=== PATIENT | male | born 1935 | race Caucasian/White ===

== ENCOUNTER 2022-03-13 10:51 | Inpatient (IN) ==
[2022-03-13] MEDS ORDERED: IOPAMIDOL 100 ML BOTTLE IV ONE (10:52)
[2022-03-13] MEDS ORDERED: IPRATROPIUM/ALBUTEROL SULFATE 1 PUFF INHALER INH ONE (11:15)
[2022-03-13] MEDS ORDERED: IPRATROPIUM/ALBUTEROL 3 ML AMPUL.NEB NEB ONE (11:18)
[2022-03-13 11:30] LABS: POC Calcium, Ionized 1.26 (1.16-1.32); POC Creatinine 1.2 (0.6-1.2); POC Potassium 3.9 (3.3-5.1)
[2022-03-13 12:21] LABS: Basophils # (Auto) 0.02 K/mcL (0.00-0.30); Basophils % (Auto) 0.3 % (0.0-2.0); Eosinophils # (Auto) 0.14 K/mcL (0.00-0.70); Hematocrit 41.6 % (40.1-51.0); Lymphocytes # (Auto) 0.67 K/mcL (1.50-4.80); Lymphocytes % (Auto) 9.6 % (15.5-49.0); Mean Cell Volume 92.7 fL (80.0-100.0); Mean Corpuscular HGB Conc 33.7 g/dL (31.0-36.0); Mean Platelet Volume 9.5 fL (8.8-12.5); Monocytes # (Auto) 0.65 K/mcL (0.10-0.90); Monocytes % (Auto) 9.3 % (1.0-12.0); Neutrophils % (Auto) 78.4 % (38.0-78.0); Platelet Count 204 K/mcL (140-440); RBC 4.49 M/mcL (4.63-6.08); Red Cell Distribution Width 13.8 % (11.5-14.5)
[2022-03-13 12:43] LABS: INR 1.1 (0.9-1.1); Prothrombin Time 14.7 sec (11.9-14.5)
--- NOTE | 2022-03-13 12:48 | XRay Report ---
INDICATION: dyspnea TECHNIQUE: AP portable upright chest x-ray COMPARISON: Previous chest x-rays dated 03/08/2022, 01/09/2022, 11/01/2021 FINDINGS: Elevated right hemidiaphragm is unchanged. There is right apical pleural thickening. There is retraction of the trachea toward the right. Findings suggest previous right partial pneumonectomy. Clinical correlation is necessary. No focal left lung infiltrate or mass Heart size and vascularity are normal. No pulmonary edema or pulmonary congestion IMPRESSION: 1. Findings consistent with right partial pneumonectomy 2. No acute abnormality. No interval change Interpreted and Authenticated by: Chidi Villa 03/13/22
[2022-03-13 12:57] LABS: ALT/SGPT 35 U/L (<40); AST/SGOT 53 U/L (<40); Albumin 3.5 gm/dL (3.2-5.2); Albumin/Globulin Ratio 1.1 (1.0-2.3); Alkaline Phosphatase 100 U/L (39-117); Bilirubin,Total 0.6 mg/dL (0.1-1.0); Blood Urea Nitrogen 15 mg/dL (8-23); Calcium 10.8 mg/dL (8.6-10.4); Carbon Dioxide 28 mmol/L (22-30); Chloride 94 mmol/L (96-108); Globulin 3.3 gm/dL (2.2-3.7); Glomerular Filtration Rate 61; Glucose 125 mg/dL (70-105)
[2022-03-13] MEDS ORDERED: DEXAMETHASONE 4 MG/ML VIAL NEB ONE (12:59)
[2022-03-13] MEDS ORDERED: AZITHROMYCIN 500 MG in DEXTROSE 5% IN WATER 250 ML IV ONE (12:59)
--- NOTE | 2022-03-13 13:01 | Emergency Department Note ---
HPI General Chief complaint: Shortness of Breath/Dyspnea Stated complaint: SOB Time Seen by Provider: 03/13/22 11:07 Source: patient and family Mode of arrival: wheelchair Limitations: no limitations History of Present Illness HPI Narrative: Narrative: This 86-year-old male presents complaining of an increasing shortness of breath over the last 7 days. The patient does not give much history he says he has had a cough that is productive he is not sure what color sputum he denies any fever sweats or chills and denies any shortness of breath. He also denies any chest pain or palpitations. Patient has a history of COPD as well as coronary artery disease he also has a right upper lobe cancer hypertension hypo thyroidism Related Data Home Medications Medication Instructions Recorded Confirmed Lacto.acidophilus-Bif.animalis 1 cap PO QDAY 08/01/17 03/08/22 [Probiotic] aspirin 81 mg tablet,delayed 81 mg PO QDAY 08/01/17 03/08/22 release cholecalciferol (vitamin D3) 25 1,000 unit PO BID 08/01/17 03/08/22 mcg (1,000 unit) capsule vitamin B complex 1 cap PO QAM 08/01/17 03/08/22 naproxen sodium 220 mg tablet 220 mg PO QDAY PRN Pain 09/21/21 03/08/22 (Aleve) diphenhydramine 25 2 tab PO QPM 10/06/21 03/08/22 mg-acetaminophen 500 mg tablet (Tylenol PM Extra Strength) Previous Rx's Medication Instructions Recorded fluticasone propionate 50 See Rx Instructions .Route 09/16/20 mcg/actuation nasal .COMPLEX allergies #16 grams spray,suspension inguinal hernia truss ##1 11/14/20 metoprolol succinate 50 mg 50 mg PO QDAY #90 tabs 11/14/20 tablet,extended release 24 hr losartan 50 mg tablet See Rx Instructions .Route 03/20/21 .COMPLEX #180 tabs gabapentin 100 mg capsule See Rx Instructions .Route 04/07/21 .COMPLEX #360 caps furosemide 20 mg tablet See Rx Instructions .Route 07/06/21 .COMPLEX #90 tabs potassium chloride 10 mEq See Rx Instructions .Route 07/06/21 capsule,extended release .COMPLEX #90 caps albuterol sulfate 90 mcg/actuation 2 puff inhalation Q6H PRN 07/22/21 aerosol inhaler shortness of breath or wheezing #25.5 grams fluticasone 250 mcg-salmeterol 50 1 inh inhalation BID COPD #60 ea 07/22/21 mcg/dose blistr powdr for inhalation (Wixela Inhub) Stationary concentrator and nasal #1 ea 07/23/21 cannula tubing lorazepam 0.5 mg tablet 0.5 mg PO Q8H PRN anxiety #90 tabs 09/15/21 acetaminophen 650 mg 650 mg PO Q8H PRN pain #90 tabs 10/27/21 tablet,extended release (Tylenol 8 Hour) omeprazole 20 mg capsule,delayed See Rx Instructions .Route 11/13/21 release .COMPLEX #90 caps amlodipine 5 mg tablet See Rx Instructions .Route 01/13/22 .COMPLEX #90 tabs tamsulosin 0.4 mg capsule 0.4 mg PO QHS #90 caps 01/13/22 doxycycline monohydrate 100 mg 100 mg PO BID 7 days #14 caps 03/08/22 capsule ipratropium 20 mcg-albuterol 100 1 puff inhalation Q6H #4 grams 03/08/22 mcg/actuation mist for inhalation (Combivent Respimat) Allergies Allergy/AdvReac Type Severity Reaction Status Date / Time adhesive tape AdvReac Mild skin Verified 03/13/22 10:54 irritation/burning Tizanidine [From Zanaflex] AdvReac Mild Hallucinati Verified 03/13/22 10:54 ng Review of Systems ROS ROS Narrative: Narrative: All systems ED: reviewed and negative except as stated. 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) Personal history of other malignant neoplasm of skin (Chronic) Edema, unspecified (Chronic) Essential (primary) hypertension (Chronic) Illness, unspecified (Chronic) Arthralgia of ankle (Chronic) Hyperlipidemia (Chronic) Allergic rhinitis (Chronic) Coronary arteriosclerosis (Chronic) Hip pain (Chronic) Chest pain (Chronic) Shortness of breath (Chronic) Heart palpitations (Chronic) Heart attack (Chronic) Indigestion (Chronic) Heartburn (Chronic) Stomach ulcer (Chronic) Urinary incontinence (Chronic) Arthritis (Chronic) Gout (Chronic) Diabetes (Chronic) Multiple allergies (Chronic) Hay fever (Chronic) Cancer (Chronic) Melanoma (Chronic) History of myocardial infarction (Chronic) Dyspnea on exertion (Chronic) Nocturia (Chronic) Other jail (current) drug therapy (Chronic) COPD (chronic obstructive pulmonary disease) (Chronic) GERD (gastroesophageal reflux disease) (Chronic) Squamous cell carcinoma (Chronic) Hypothyroidism (Chronic) Sinusitis (Chronic) Asthma (Chronic) Hypertension (Chronic) Cough (Chronic) Hypoxia (Chronic) Dyspnea (Chronic) Generalized anxiety disorder (Chronic) Nausea (Chronic) Stress (Chronic) Malignant neoplasm of upper lobe of right lung (Chronic) Lumbar back pain (Chronic) Pain in unspecified ankle and joints of unspecified foot (Chronic) Personal history of malignant neoplasm of skin (Chronic) Encounter for long-term (current) use of medications (Chronic) Maxillary sinusitis (Chronic) Productive cough (Acute) Fever (Acute) COPD exacerbation (Acute) Atherosclerotic heart disease of [place] coronary artery without angina pectoris (Chronic) Lipomatosis, not elsewhere classified (Chronic) Vitamin D deficiency (Chronic) Osteoarthritis (Chronic) Inguinal hernia bilateral, non-recurrent (Acute) Prediabetes (Acute) Allergic rhinitis (Acute) Ascending aorta enlargement (Acute) Hernia (Acute) Shoulder pain (Acute) Hematoma (Acute) Hip pain (Acute) Nocturnal hypoxia (Chronic) Bronchitis (Acute) Bronchitis (Acute) Dyspnea (Acute) Left inguinal hernia (Acute) Right inguinal hernia (Acute) Dehydration (Acute) Heart palpitations (Acute) Calculus of left ureter (Acute) Hydronephrosis, left (Acute) Acute urinary retention (Acute) Acute urinary retention (Acute) BPH loc w urin obs/LUTS (Chronic) Retention of urine (Acute) Urinary incontinence (Acute) Medical History Allergic rhinitis Arthralgia of ankle or foot Arthritis Asthma Atherosclerotic heart disease of [place] coronary artery without angina pectoris Cancer 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 Chest pain COPD (chronic obstructive pulmonary disease) Coronary arteriosclerosis Cough Diabetes Dyspnea Dyspnea on exertion Edema, unspecified Encounter for long-term (current) use of medications Essential (primary) hypertension Fibromyalgia Per pt Generalized anxiety disorder GERD (gastroesophageal reflux disease) Gout Hay fever Heart attack Heart palpitations Heartburn Hip pain History of myocardial infarction Hyperlipidemia Hypertension Hypothyroidism Hypoxia Illness, unspecified Indigestion Lipomatosis, not elsewhere classified Lumbar back pain Malignant neoplasm of upper lobe of right lung right upper lobe lobectomy 01/28/2017; follows with Dr. Morales every 6 months Mass of right lung Maxillary sinusitis Melanoma Multiple allergies Nausea Nocturia Nocturnal hypoxia Osteoarthritis Other jail (current) drug therapy Pain in unspecified ankle and joints of unspecified foot Personal history of malignant neoplasm of skin Personal history of other malignant neoplasm of skin Pneumonia Per pt Pulmonary hypertension Shortness of breath Sinusitis Squamous cell carcinoma Stomach ulcer Stress Urinary incontinence Vitamin D deficiency Surgical History History of bilateral inguinal hernia repair 10/27/2021-robotic assisted bilateral inguinal hernia repair History of cholecystectomy Mid- History of colonoscopy (~1986) History of heart artery stent (~1995) X2 History of skin surgery (~2004) Melanoma History of surgery Lung volume reduction History of thoracic surgery (01/27/17) Family History Mother , age 80 Arthritis Colon cancer Glaucoma , Onset Age: 84 Diabetes mellitus Father Cancer , Onset Age: 52 Lung cancer Arthritis Brother Throat cancer , Onset Age: 62 Social History Smoking Status: Former smoker Alcohol Intake Frequency: does not drink Substance Use: does not use Exam Narrative Narrative: Narrative: General: No acute distress alert and oriented x3 answers quite questions cogently but is very reticent to give any information. Person just does not seem like much of a talker. Skin well perfused and hydrated without exanthem. Lungs: Decreased air movement with expiratory wheezes heard equally b ilaterally no rales. Occasional rhonchi. Cardiovascular: Regular rate and rhythm without murmurs clicks rubs or gallops. Periphery: No peripheral edema. General Limitations: no limitations Course Vital Signs Vital signs: Vital Signs Temperature 97.8 F 03/13/22 10:52 Pulse Rate 99 H 03/13/22 10:52 Respiratory Rate 21 03/13/22 10:52 Blood Pressure 160/95 03/13/22 10:52 Pulse Oximetry (%) 95 03/13/22 10:52 Oxygen Delivery Method 03/13/22 10:52 Temperature 97.8 F 03/13/22 10:52 Pulse Rate 51 L 03/13/22 15:31 Respiratory Rate 23 H 03/13/22 15:31 Blood Pressure 108/75 03/13/22 15:30 Pulse Oximetry (%) 87 L 03/13/22 15:31 Oxygen Delivery Method 03/13/22 10:52 [facility] MDM Narrative Medical decision making narrative: Narrative: The patient's initial pulse ox was 95% on room air and although he was breathing somewhat deeply he was not struggling or working to breathe. He was given a combo nebulizer treatment and stated that he felt better. CBC was negative for elevated white count, however, he did have however an elevated D- dimer of 3.2 and BNP was elevated at 1780. This is markedly higher than his last BNP in November of 400. His troponin was negative at 0.04. Patient developed tachycardia to 150 after the treatment and appeared to be in atrial fibrilation. He was given diltiazem 20 IV, and he slowed down to a rate of approximately 90 and is in sinus rhythm now, he will be placed on a diltiazem drip and because of the elevated D-dimer, a Heparin bolus and drip was started CTA will be checked. Sepsis Sepsis Identified: No Lab Data Result diagrams: 03/13/22 11:20 03/13/22 11:20 Labs: Lab Results 03/13/22 03/13/22 03/13/22 Range/Units 11:16 11:17 11:20 WBC 7.0 (4.5-11.0) K/mcL RBC 4.49 L (4.63-6.08) M/mcL Hgb 14.0 (13.7-17.5) g/dL Hct 41.6 (40.1-51.0) % POC Hct 43.0 (41-55) MCV 92.7 (80.0-100.0) fL MCH 31.2 (26.0-34.0) pg MCHC 33.7 (31.0-36.0) g/dL RDW 13.8 (11.5-14.5) % Plt Count 204 (140-440) K/mcL MPV 9.5 (8.8-12.5) fL Immature Gran % (Auto) 0.4 (0.0-0.5) % Neut % (Auto) 78.4 H (38.0-78.0) % Lymph % (Auto) 9.6 L (15.5-49.0) % [place] % (Auto) 9.3 (1.0-12.0) % Eos % (Auto) 2.0 (0.0-7.0) % Baso % (Auto) 0.3 (0.0-2.0) % Lymph # (Auto) 0.67 L (1.50-4.80) K/mcL [place] # (Auto) 0.65 (0.10-0.90) K/mcL Eos # (Auto) 0.14 (0.00-0.70) K/mcL Baso # (Auto) 0.02 (0.00-0.30) K/mcL Immature Gran # 0.03 (0.00-0.05) K/mcl Absolute Neutrophils 5.47 (1.80-8.00) K/mcL PT (11.9-14.5) sec INR (0.9-1.1) D-Dimer (0.27-0.50) ug/mL POC Sodium 135 (133-145) Sodium (133-145) mmol/L POC Potassium 3.9 (3.3-5.1) Potassium (3.3-5.1) mmol/L POC Chloride 95 L (96-108) Chloride (96-108) mmol/L Carbon Dioxide (22-30) mmol/L POC Total CO2 33.0 H (22-30) Anion Gap (8.0-16.0) POC BUN 18 (6-20) BUN (8-23) mg/dL Creatinine (0.7-1.2) mg/dL POC Creatinine 1.2 (0.6-1.2) GFR Calculation Glucose (70-105) mg/dL POC Glucose 127 H (70-105) Calcium (8.6-10.4) mg/dL POC WB Ioniz Calcium 1.26 (1.16-1.32) Total Bilirubin (0.1-1.0) mg/dL AST (<40) U/L ALT (<40) U/L Alkaline Phosphatase (39-117) U/L NT-Pro-B Natriuret Pep (<450.0) pg/mL Total Protein (5.9-8.4) gm/dL Albumin (3.2-5.2) gm/dL Globulin (2.2-3.7) gm/dL Albumin/Globulin Ratio (1.0-2.3) POC Troponin I 0.04 (0.00-0.08) 03/13/22 03/13/22 Range/Units 11:20 11:20 WBC (4.5-11.0) K/mcL RBC (4.63-6.08) M/mcL Hgb (13.7-17.5) g/dL Hct (40.1-51.0) % POC Hct (41-55) MCV (80.0-100.0) fL MCH (26.0-34.0) pg MCHC (31.0-36.0) g/dL RDW (11.5-14.5) % Plt Count (140-440) K/mcL MPV (8.8-12.5) fL Immature Gran % (Auto) (0.0-0.5) % Neut % (Auto) (38.0-78.0) % Lymph % (Auto) (15.5-49.0) % [place] % (Auto) (1.0-12.0) % Eos % (Auto) (0.0-7.0) % Baso % (Auto) (0.0-2.0) % Lymph # (Auto) (1.50-4.80) K/mcL [place] # (Auto) (0.10-0.90) K/mcL Eos # (Auto) (0.00-0.70) K/mcL Baso # (Auto) (0.00-0.30) K/mcL Immature Gran # (0.00-0.05) K/mcl Absolute Neutrophils (1.80-8.00) K/mcL PT 14.7 H (11.9-14.5) sec INR 1.1 (0.9-1.1) D-Dimer 3.20 H (0.27-0.50) ug/mL POC Sodium (133-145) Sodium 132 L (133-145) mmol/L POC Potassium (3.3-5.1) Potassium 4.0 (3.3-5.1) mmol/L POC Chloride (96-108) Chloride 94 L (96-108) mmol/L Carbon Dioxide 28 (22-30) mmol/L POC Total CO2 (22-30) Anion Gap 10.0 (8.0-16.0) POC BUN (6-20) BUN 15 (8-23) mg/dL Creatinine 1.1 (0.7-1.2) mg/dL POC Creatinine (0.6-1.2) GFR Calculation 61 Glucose 125 H (70-105) mg/dL POC Glucose (70-105) Calcium 10.8 H (8.6-10.4) mg/dL POC WB Ioniz Calcium (1.16-1.32) Total Bilirubin 0.6 (0.1-1.0) mg/dL AST 53 H (<40) U/L ALT 35 (<40) U/L Alkaline Phosphatase 100 (39-117) U/L NT-Pro-B Natriuret Pep 1780.0 H (<450.0) pg/mL Total Protein 6.8 (5.9-8.4) gm/dL Albumin 3.5 (3.2-5.2) gm/dL Globulin 3.3 (2.2-3.7) gm/dL Albumin/Globulin Ratio 1.1 (1.0-2.3) POC Troponin I (0.00-0.08) ED POC Tests ED POC Tests: [facility]I - Influenza A Negative CHI - Influenza B Negative CHI - SARS Antigen Negative Discharge Plan Patient/Caregiver Discharge Instructions Follow up with: Glenna Harris PA-C [Primary Care Provider] - Prescriptions: No Action potassium chloride 10 mEq capsule, extended release See Rx Instructions .ROUTE .COMPLEX Qty: 90 3RF Dose Instruction: TAKE 1 CAPSULE BY MOUTH EVERY DAY Rx Instructions: TAKE 1 CAPSULE BY MOUTH EVERY DAY furosemide 20 mg tablet See Rx Instructions .ROUTE .COMPLEX Qty: 90 3RF Dose Instruction: TAKE 1 TABLET BY MOUTH EVERY MORNING FOR HYPERTENSION Rx Instructions: TAKE 1 TABLET BY MOUTH EVERY MORNING FOR HYPERTENSION fluticasone propion-salmeterol [Wixela Inhub] 250-50 mcg/dose blister with device 1 inh inhalation BID Qty: 60 12RF Rx Instructions: Inhale 1 dose twice a day rinse and clear mouth after . albuterol sulfate 90 mcg/actuation HFA aerosol inhaler 2 puff inhalation Q6H PRN (Reason: shortness of breath or wheezing) Qty: 25.5 3RF (DME) Stationary concentrator and nasal cannula tubing See Rx Instructions .Route .MEDSUPPLY Qty: 1 0RF Rx Instructions: Wear 2LPM while sleeping; at night and or naps. lorazepam 0.5 mg tablet 0.5 mg PO Q8H PRN (Reason: anxiety ) Qty: 90 2RF omeprazole 20 mg capsule,delayed release(DR/EC) See Rx Instructions .ROUTE .COMPLEX Qty: 90 2RF Dose Instruction: TAKE 1 CAPSULE BY MOUTH EVERY DAY Rx Instructions: TAKE 1 CAPSULE BY MOUTH EVERY DAY amlodipine 5 mg tablet See Rx Instructions .ROUTE .COMPLEX Qty: 90 4RF Dose Instruction: TAKE 1 TABLET(5 MG) BY MOUTH EVERY NIGHT AT BEDTIME FOR HYPERTENSION Rx Instructions: TAKE 1 TABLET(5 MG) BY MOUTH EVERY NIGHT AT BEDTIME FOR HYPERTENSION aspirin 81 mg tablet,delayed release (DR/EC) 81 mg PO QDAY cholecalciferol (vitamin D3) 1,000 unit capsule 1,000 unit PO BID Lacto.acidophilus-Bif.animalis 1 cap PO QDAY vitamin B complex 1 cap PO QAM naproxen sodium [Aleve] 220 mg tablet 220 mg PO QDAY PRN (Reason: Pain) doxycycline monohydrate 100 mg capsule 100 mg PO BID 7 Days Qty: 14 0RF Rx Instructions: Take with food. Combivent Respimat 20-100 mcg/actuation mist 1 puff inhalation Q6H Qty: 4 0RF fluticasone propionate 50 mcg/actuation spray,suspension See Rx Instructions .ROUTE .COMPLEX Qty: 16 6RF Dose Instruction: INSTILL 1 SPRAY INTO EACH NOSTRIL DAILY Rx Instructions: INSTILL 1 SPRAY INTO EACH NOSTRIL DAILY metoprolol succinate 50 mg tablet extended release 24 hr 50 mg PO QDAY Qty: 90 4RF (DME) inguinal hernia truss See Rx Instructions .Route .MEDSUPPLY Qty: 1 0RF Rx Instructions: As directed losartan 50 mg tablet See Rx Instructions .ROUTE .COMPLEX Qty: 180 3RF Dose Instruction: TAKE 1 TABLET BY MOUTH TWICE DAILY Rx Instructions: TAKE 1 TABLET BY MOUTH TWICE DAILY gabapentin 100 mg capsule See Rx Instructions .ROUTE .COMPLEX Qty: 360 3RF Dose Instruction: TAKE 1 CAPSULE BY MOUTH AT SUPPER AND 1 CAPSULE BY MOUTH AT BEDTIME Rx Instructions: TAKE 2 CAPSULE BY MOUTH AT SUPPER AND 1 CAPSULE BY MOUTH AT BEDTIME diphenhydramine-acetaminophen [Tylenol PM Extra Strength] 25-500 mg Tablet 2 tab PO QPM acetaminophen [Tylenol 8 Hour] 650 mg tablet extended release 650 mg PO Q8H PRN (Reason: pain) Qty: 90 0RF tamsulosin 0.4 mg capsule 0.4 mg PO QHS Qty: 90 3RF
[2022-03-13] MEDS ORDERED: DILTIAZEM 25 MG/5 ML VIAL IV ONE (13:14)
[2022-03-13] MEDS ORDERED: HEPARIN 5,000 UNIT/ML VIAL IV ONE (13:15)
[2022-03-13] MEDS ORDERED: DILTIAZEM 125 MG in DEXTROSE 5% IN WATER 100 ML IV SCH (13:30)
[2022-03-13] MEDS ORDERED: HEPARIN SOD,PORK IN 0.45% NACL 25,000 UNIT in PREMIX 1 BAG IV SCH (13:45)
[2022-03-13] MEDS ORDERED: DEXAMETHASONE 10 MG/ML VIAL IV ONE (13:55)
--- NOTE | 2022-03-13 14:15 | Cat Scan Report ---
INDICATION: ddimer COMPARISON: Previous CT scan dated 09/07/2021 TECHNIQUE: Axial images obtained through the chest. [place] Vml Isovue 370 injected intravenously, and scanning was performed during pulmonary arterial phase. Sagittally and coronally reformatted images were obtained. MIP reformatted images. FINDINGS: Lungs:Findings consistent with partial right pneumonectomy. There is right apical pleural thickening. There is elevation of the right hemidiaphragm. There is bilateral lower lobe pulmonary parenchymal infiltrate, right worse than left. Appearance is consistent with infection. Atypical pneumonia is suspected. There is no consolidation. There is no discrete pulmonary parenchymal mass. Mediastinum, vascular:Main pulmonary artery, right pulmonary artery, left pulmonary artery are negative. No intraluminal filling defects. No lobar, segmental, or subsegmental emboli. Thoracic aorta is negative. No aneurysmal dilatation No pathologic mediastinal or hilar adenopathy Heart:No cardiomegaly. No pericardial effusion. There is extensive coronary artery calcification No significant reflux of contrast material into the inferior vena cava or hepatic veins Pleura:No significant pleural effusion. No pleural mass or calcification Axilla, supraclavicular regions, chest wall:No pathologic axillary or supraclavicular adenopathy. Musculoskeletal:There are anterior syndesmophytes consistent with ankylosing spondylitis Upper Abdomen:Large left upper pole renal cyst. Previous cholecystectomy IMPRESSION: 1. Negative pulmonary CTA 2. Bilateral lower lobe infiltrates, right worse than left. Appearance is consistent with pneumonia 3. Appearance consistent with previous partial right pneumonectomy The exam was performed using radiation dose optimization techniques including, but not limited to, automated exposure control, adjustment of the mA and/or kV according to patient size and use of iterative reconstruction technique. Interpreted and Authenticated by: Chidi Villa 03/13/22
--- NOTE | 2022-03-13 17:13 | Internal Med History&Physical ---
HPI History of Present Illness Patient information: Note initiated : 03/13/22 at 5:11 pm Service Date, if different from initiated Date: [] Patient: Arben Andrade a 86 y/o M admitted on for Shortness of breath. Chief Complaint: [shortness of breath, cough] Chief complaint: shortness of breath, cough History of present illness: Mr. Andrade is a 86 year old M history of lung cancer s/p partial right pneumonectomy in January 2017, COPD, hypertensions, BPH, GERD, presenting with 1 week history of shortness of breath and cough. He presented to [facility] on March 08, 2022, and was being tested positive for RSV. He is presenting with 1 week history of worsening shortness of breath, and cough with sodium phlegms productions. He denies respiratory wheezings. He denies chest pain or chest pressure. He denies palpitations. He experienced shaking chills a day or 2 ago, denies any fever or diaphoresis. He is complaining of general body weakness. Vital signs at ED presentation significant for tachycardia as well as oxygen desaturating in the high 80s on room air. Labs significant for lack of leukocytosis with WBC 7.0. Lactic acid pending. D dimer 3.20. CT angiogram of the chest negative for pulmonary embolism. It shows bilateral lung base infiltrate suggestive of bilateral pneumonia. Patient's developed atrial fibrillation's after a breathing treatment was delivered in the ED, but he subsequently converted back to normal sinus rhythm. Admission request was called for pneumonia as well as COPD exacerbations. Constitutional Constitutional: Present chills and weakness; Absent excessive sweating, fatigue or fever(s) EENT Eyes: Absent blurry vision, change in vision, loss of vision or other visual disturbances Ears: Absent decreased hearing or tinnitus Nose, mouth and throat: Absent abnormal hearing, dry mouth, headache(s), nasal congestion or sore throat Cardiovascular Cardiovascular: Absent chest pain, chest pain at rest, edema, irregular heart rhythm or palpatations Respiratory Respiratory: Present cough, dyspnea and excessive phlegm production; Absent wheezing Gastrointestinal Gastrointestinal: Absent abdominal pain, constipation, diarrhea, nausea or vomiting Musculoskeletal Musculoskeletal: Absent back pain, deformity, limited range of motion, muscle cramps, muscle weakness or numbness Integumentary Integumentary: Absent lesions, rash or wounds Neurological Neurological: Absent focal weakness, headache(s) or numbness Psychiatric Psychiatric: Absent anxiety, depression or hallucinations PFSH PFSH All Active Problems (Updated 03/13/22 @ 17:19 by Zeyad Carson MD) Bilateral pneumonia (Acute) Mass of right lung (Chronic) 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) Personal history of other malignant neoplasm of skin (Chronic) Edema, unspecified (Chronic) Essential (primary) hypertension (Chronic) Illness, unspecified (Chronic) Arthralgia of ankle (Chronic) Hyperlipidemia (Chronic) Allergic rhinitis (Chronic) Coronary arteriosclerosis (Chronic) Hip pain (Chronic) Chest pain (Chronic) Shortness of breath (Chronic) Heart palpitations (Chronic) Heart attack (Chronic) Indigestion (Chronic) Heartburn (Chronic) Stomach ulcer (Chronic) Urinary incontinence (Chronic) Arthritis (Chronic) Gout (Chronic) Diabetes (Chronic) Multiple allergies (Chronic) Hay fever (Chronic) Cancer (Chronic) Melanoma (Chronic) History of myocardial infarction (Chronic) Dyspnea on exertion (Chronic) Nocturia (Chronic) Other fpc (current) drug therapy (Chronic) COPD (chronic obstructive pulmonary disease) (Chronic) GERD (gastroesophageal reflux disease) (Chronic) Squamous cell carcinoma (Chronic) Hypothyroidism (Chronic) Sinusitis (Chronic) Asthma (Chronic) Hypertension (Chronic) Cough (Chronic) Hypoxia (Chronic) Dyspnea (Chronic) Generalized anxiety disorder (Chronic) Nausea (Chronic) Stress (Chronic) Malignant neoplasm of upper lobe of right lung (Chronic) Lumbar back pain (Chronic) Pain in unspecified ankle and joints of unspecified foot (Chronic) Personal history of malignant neoplasm of skin (Chronic) Encounter for long-term (current) use of medications (Chronic) Maxillary sinusitis (Chronic) Productive cough (Acute) Fever (Acute) COPD exacerbation (Acute) Atherosclerotic heart disease of [place] coronary artery without angina pectoris (Chronic) Lipomatosis, not elsewhere classified (Chronic) Vitamin D deficiency (Chronic) Osteoarthritis (Chronic) Inguinal hernia bilateral, non-recurrent (Acute) Prediabetes (Acute) Allergic rhinitis (Acute) Ascending aorta enlargement (Acute) Hernia (Acute) Shoulder pain (Acute) Hematoma (Acute) Hip pain (Acute) Nocturnal hypoxia (Chronic) Bronchitis (Acute) Bronchitis (Acute) Dyspnea (Acute) Left inguinal hernia (Acute) Right inguinal hernia (Acute) Dehydration (Acute) Heart palpitations (Acute) Calculus of left ureter (Acute) Hydronephrosis, left (Acute) Acute urinary retention (Acute) Acute urinary retention (Acute) BPH loc w urin obs/LUTS (Chronic) Retention of urine (Acute) Urinary incontinence (Acute) Medical History Allergic rhinitis Arthralgia of ankle or foot Arthritis Asthma Atherosclerotic heart disease of [place] coronary artery without angina pectoris Cancer 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 Chest pain COPD (chronic obstructive pulmonary disease) Coronary arteriosclerosis Cough Diabetes Dyspnea Dyspnea on exertion Edema, unspecified Encounter for long-term (current) use of medications Essential (primary) hypertension Fibromyalgia Per pt Generalized anxiety disorder GERD (gastroesophageal reflux disease) Gout Hay fever Heart attack Heart palpitations Heartburn Hip pain History of myocardial infarction Hyperlipidemia Hypertension Hypothyroidism Hypoxia Illness, unspecified Indigestion Lipomatosis, not elsewhere classified Lumbar back pain Malignant neoplasm of upper lobe of right lung right upper lobe lobectomy 01/28/2017; follows with Dr. 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 Pain in unspecified ankle and joints of unspecified foot Personal history of malignant neoplasm of skin Personal history of other malignant neoplasm of skin Pneumonia Per pt Pulmonary hypertension Shortness of breath Sinusitis Squamous cell carcinoma Stomach ulcer Stress Urinary incontinence Vitamin D deficiency Surgical History History of bilateral inguinal hernia repair 10/27/2021-robotic assisted bilateral inguinal hernia repair History of cholecystectomy Mid- History of colonoscopy (~1986) History of heart artery stent (~1995) X2 History of skin surgery (~2004) Melanoma History of surgery Lung volume reduction History of thoracic surgery (01/27/17) Family History Mother , age 80 Arthritis Colon cancer Glaucoma , Onset Age: 84 Diabetes mellitus Father Cancer , Onset Age: 52 Lung cancer Arthritis Brother Throat cancer , Onset Age: 62 Social History household members: family marital status: education level: middle school service: Yes occupational status: retired physical activity: none smoking status: Former smoker quit date: 06/28/95 pack-years: 27 alcohol intake frequency: does not drink substance use type: does not use chris/faith: [employer] seatbelt use: always MEDS/ALLERGIES Home Medications and Allergies Home Medications Medication Instructions Recorded Confirmed Type Lacto.acidophilus-Bif.animalis 1 cap PO QDAY 08/01/17 03/08/22 History [Probiotic] aspirin 81 mg tablet,delayed 81 mg PO QDAY 08/01/17 03/08/22 History release cholecalciferol (vitamin D3) 25 1,000 unit PO BID 08/01/17 03/08/22 History mcg (1,000 unit) capsule vitamin B complex 1 cap PO QAM 08/01/17 03/08/22 History fluticasone propionate 50 See Rx Instructions .Route 09/16/20 03/08/22 Rx mcg/actuation nasal .COMPLEX allergies #16 grams spray,suspension inguinal hernia truss ##1 11/14/20 03/08/22 Rx metoprolol succinate 50 mg 50 mg PO QDAY #90 tabs 11/14/20 03/08/22 Rx tablet,extended release 24 hr losartan 50 mg tablet See Rx Instructions .Route 03/20/21 03/08/22 Rx .COMPLEX #180 tabs gabapentin 100 mg capsule See Rx Instructions .Route 04/07/21 03/08/22 Rx .COMPLEX #360 caps furosemide 20 mg tablet See Rx Instructions .Route 07/06/21 03/08/22 Rx .COMPLEX #90 tabs potassium chloride 10 mEq See Rx Instructions .Route 07/06/21 03/08/22 Rx capsule,extended release .COMPLEX #90 caps albuterol sulfate 90 mcg/actuation 2 puff inhalation Q6H PRN 07/22/21 03/08/22 Rx aerosol inhaler shortness of breath or wheezing #25.5 grams fluticasone 250 mcg-salmeterol 50 1 inh inhalation BID COPD #60 ea 07/22/21 03/08/22 Rx mcg/dose blistr powdr for inhalation (Liban Marie) Stationary concentrator and nasal #1 ea 07/23/21 03/08/22 Rx cannula tubing lorazepam 0.5 mg tablet 0.5 mg PO Q8H PRN anxiety #90 tabs 09/15/21 03/08/22 Rx naproxen sodium 220 mg tablet 220 mg PO QDAY PRN Pain 09/21/21 03/08/22 History (Aleve) diphenhydramine 25 2 tab PO QPM 10/06/21 03/08/22 History mg-acetaminophen 500 mg tablet (Tylenol PM Extra Strength) acetaminophen 650 mg 650 mg PO Q8H PRN pain #90 tabs 10/27/21 03/08/22 Rx tablet,extended release (Tylenol 8 Hour) omeprazole 20 mg capsule,delayed See Rx Instructions .Route 11/13/21 03/08/22 Rx release .COMPLEX #90 caps amlodipine 5 mg tablet See Rx Instructions .Route 01/13/22 03/08/22 Rx .COMPLEX #90 tabs tamsulosin 0.4 mg capsule 0.4 mg PO QHS #90 caps 01/13/22 03/08/22 Rx doxycycline monohydrate 100 mg 100 mg PO BID 7 days #14 caps 03/08/22 03/08/22 Rx capsule ipratropium 20 mcg-albuterol 100 1 puff inhalation Q6H #4 grams 03/08/22 03/08/22 Rx mcg/actuation mist for inhalation (Combivent Respimat) Allergies Allergy/AdvReac Type Severity Reaction Status Date / Time adhesive tape AdvReac Mild skin Verified 03/13/22 10:54 irritation/burning Tizanidine [From Zanaflex] AdvReac Mild Hallucinati Verified 03/13/22 10:54 ng EXAM Constitutional Vitals: Temp Pulse Resp BP Pulse Ox O2 Del Method 36.6 C 104 H 21 144/83 96 03/13/22 10:52 03/13/22 16:46 03/13/22 16:46 03/13/22 16:46 03/13/22 16:46 03/13/22 10:52 General appearance: cooperative, mild distress and thin Head Head exam: Present atraumatic and normocephalic Eye Eye exam: Present EOMI and PERRL ENT ENT exam: Present mucous membranes moist, normal exam and normal external ear exam Neck Neck exam: Present normal inspection; Absent lymphadenopathy, tenderness or thyromegaly Respiratory Respiratory exam: Present decreased breath sounds and rhonchi; Absent accessory muscle use, respiratory distress or wheezes Cardiovascular Cardiovascular exam: Present normal rate and rhythm; Absent JVD GI/Abdominal GI/Abdominal exam: Present normal bowel sounds and soft; Absent organomegaly or tenderness Rectal Rectal exam: Present deferred Extremities Exam Extremities exam: Present full ROM, normal capillary refill and normal inspecti on; Absent tenderness Neurological Exam Neurological exam: Present alert, CN II-XII intact and oriented X3; Absent motor sensory deficit Psychiatric Psychiatric exam: Present normal affect and normal mood; Absent anxious or depressed Skin Skin exam: Present dry and intact DATA Data Completed and Pending Labs: Labs from last 24 hours 03/13/22 03/13/22 03/13/22 16:14 11:20 11:20 WBC RBC Hgb Hct POC Hct MCV MCH MCHC RDW Plt Count MPV Immature Gran % (Auto) Neut % (Auto) Lymph % (Auto) [place] % (Auto) Eos % (Auto) Baso % (Auto) Lymph # (Auto) [place] # (Auto) Eos # (Auto) Baso # (Auto) Immature Gran # Absolute Neutrophils PT 14.7 H INR 1.1 D-Dimer 3.20 H POC Sodium Sodium 132 L POC Potassium Potassium 4.0 POC Chloride Chloride 94 L Carbon Dioxide 28 POC Total CO2 Anion Gap 10.0 POC BUN BUN 15 Creatinine 1.1 POC Creatinine GFR Calculation 61 Glucose 125 H POC Glucose Calcium 10.8 H POC WB Ioniz Calcium Total Bilirubin 0.6 AST 53 H ALT 35 Alkaline Phosphatase 100 NT-Pro-B Natriuret Pep 1780.0 H Total Protein 6.8 Albumin 3.5 Globulin 3.3 Albumin/Globulin Ratio 1.1 POC Troponin I 0.02 03/13/22 03/13/22 03/13/22 11:20 11:17 11:16 WBC 7.0 RBC 4.49 L Hgb 14.0 Hct 41.6 POC Hct 43.0 MCV 92.7 MCH 31.2 MCHC 33.7 RDW 13.8 Plt Count 204 MPV 9.5 Immature Gran % (Auto) 0.4 Neut % (Auto) 78.4 H Lymph % (Auto) 9.6 L [place] % (Auto) 9.3 Eos % (Auto) 2.0 Baso % (Auto) 0.3 Lymph # (Auto) 0.67 L [place] # (Auto) 0.65 Eos # (Auto) 0.14 Baso # (Auto) 0.02 Immature Gran # 0.03 Absolute Neutrophils 5.47 PT INR D-Dimer POC Sodium 135 Sodium POC Potassium 3.9 Potassium POC Chloride 95 L Chloride Carbon Dioxide POC Total CO2 33.0 H Anion Gap POC BUN 18 BUN Creatinine POC Creatinine 1.2 GFR Calculation Glucose POC Glucose 127 H Calcium POC WB Ioniz Calcium 1.26 Total Bilirubin AST ALT Alkaline Phosphatase NT-Pro-B Natriuret Pep Total Protein Albumin Globulin Albumin/Globulin Ratio POC Troponin I 0.04 A/P Assessment and plan (1) Essential (primary) hypertension: Status: Chronic (2) GERD (gastroesophageal reflux disease): Status: Chronic Qualifiers: Esophagitis presence: without esophagitis Qualified Code(s): K21.9 - Gastro-esophageal reflux disease without esophagitis (3) COPD exacerbation: Status: Acute (4) BPH loc w urin obs/LUTS: Status: Chronic (5) Bilateral pneumonia: Status: Acute Narrative A/P Narrative: Assessment and Plans: 1. Bilateral pneumonia: Inpatient med surg telemetry Supplemental oxygen therapy titrate to achieve spo2>=88% given COPD-er Serial lactic acid Procalcitonin CEPHEID Blood culture cbc w/ auto diff in the morning to trend WBC Rocephin Zithromax NS@100cc/hr Physical therapy 2. COPD exacerbation: Supplemental oxygen therapy titrate to achieve spo2>=88% given COPD-er Solu-Medrol Xopenox (Atrial fibrillation in the ED) Zithromax 3. h/o lung cancer s/p right partial pneumonectomy: Continue to monitor 4. BPH: Continue Flomax 5. GERD: Continue Prilosec 6. Essential hypertension: Amlodipine Lasix Losartan Metoprolol ER GI ppx: Prilosec DVT ppx: Lovenox Code status: Full Prognosis: Guarded Disposition: inpatient med surg telemetry; PT Time Spent With Patient Time: Total time spent is greater than 50% in coordination of care (as documented) at patient's floor/unit and/or counseling patient: Total time spent with greater than 50% in coordination of care (as documented) at patient's floor/unit and/or counseling patient:: 50 - 70 minutes
[2022-03-13] MEDS ORDERED: ONDANSETRON 4 MG/2 ML VIAL IV PRN (17:27)
[2022-03-13] MEDS ORDERED: traZODone HCL 50 MG TABLET PO PRN (17:27)
[2022-03-13] MEDS ORDERED: ACETAMINOPHEN 325 MG TABLET PO PRN (17:27)
[2022-03-13] MEDS ORDERED: cefTRIAXone 1 GM in DEXTROSE 5% IN WATER 50 ML IV SCH (17:27)
[2022-03-13] MEDS: 0.9 % SODIUM CHLORIDE 1,000 ML IV SCH (18:10)
[2022-03-13] MEDS ORDERED: NON FORMULARY MEDICATION 1 DOSE MISCELL (Acetaminophen [Tylenol 8 Hour] 650 mg tablet exte PO PRN (18:21)
[2022-03-13] MEDS ORDERED: ALBUTEROL SULFATE 60 PUFF INHALER INH PRN (18:21)
[2022-03-13] MEDS ORDERED: NAPROXEN 250 MG TABLET PO PRN (18:43)
[2022-03-13] MEDS: LEVALBUTEROL 1.25 MG/3 ML AMPUL.NEB NEB SCH ×2 (18:56→22:16)
[2022-03-13] MEDS: cefTRIAXone 1 GM VIAL IV SCH (19:30)
[2022-03-13] MEDS: FLUTICASONE/SALMETEROL 250/50 INHALER #14 INH SCH (20:17)
[2022-03-13] MEDS: diphenhydrAMINE 25 MG CAPSULE PO SCH (20:19)
[2022-03-13] MEDS: ACETAMINOPHEN 500 MG TABLET PO SCH (20:19)
[2022-03-13] MEDS: LOSARTAN 50 MG TABLET PO SCH (20:20)
[2022-03-13] MEDS: GABAPENTIN 100 MG CAPSULE PO SCH (20:20)
[2022-03-13] MEDS: LORazepam 0.5 MG TABLET PO PRN (20:20)
[2022-03-13] MEDS: TAMSULOSIN 0.4 MG CAPSULE PO SCH (20:20)
[2022-03-13] MEDS: amLODIPine 5 MG TABLET PO SCH (20:20)
[2022-03-13] MEDS: SENNOSIDES 1 TABLET PO SCH (20:21)
[2022-03-13] MEDS: DOCUSATE SODIUM 100 MG CAPSULE PO SCH (20:21)
[2022-03-13] MEDS: VITAMIN D3 25 MCG TABLET PO SCH (20:24)
[2022-03-13] MEDS: 0.9 % SODIUM CHLORIDE 10 ML SYRINGE IV SCH (21:25)
[2022-03-13] MEDS: guaiFENesin/DEXTROMETHORPHAN ORAL SOL PO PRN (21:44)
[2022-03-13] MEDS: methylPREDNISolone SOD SUCC 125 MG/2 ML VIAL IV SCH (21:52)
[2022-03-14] MEDS: LEVALBUTEROL 1.25 MG/3 ML AMPUL.NEB NEB SCH ×6 (03:27→22:17)
[2022-03-14] MEDS: 0.9 % SODIUM CHLORIDE 1,000 ML IV SCH (03:43)
[2022-03-14] MEDS ORDERED: DILTIAZEM 25 MG/5 ML VIAL IV ONE ×2 (04:33→04:35)
[2022-03-14] MEDS: 0.9 % SODIUM CHLORIDE 10 ML SYRINGE IV SCH ×3 (05:34→21:46)
[2022-03-14] MEDS: methylPREDNISolone SOD SUCC 125 MG/2 ML VIAL IV SCH ×3 (05:40→21:45)
[2022-03-14] MEDS: OMEPRAZOLE 20 MG CAPSULE PO SCH (07:20)
[2022-03-14] MEDS: POTASSIUM CHLORIDE 10 MEQ TABLET PO SCH (07:20)
[2022-03-14 07:26] LABS: Basophils # (Auto) 0.01 K/mcL (0.00-0.30); Basophils % (Auto) 0.3 % (0.0-2.0); Eosinophils # (Auto) 0 K/mcL (0.00-0.70); Eosinophils % (Auto) 0 % (0.0-7.0); Hematocrit 38.4 % (40.1-51.0); Hemoglobin 13.2 g/dL (13.7-17.5); Lymphocytes # (Auto) 0.27 K/mcL (1.50-4.80); Lymphocytes % (Auto) 7.3 % (15.5-49.0); Mean Cell Volume 94.1 fL (80.0-100.0); Mean Corpuscular HGB Conc 34.4 g/dL (31.0-36.0); Mean Platelet Volume 9.4 fL (8.8-12.5); Monocytes # (Auto) 0.04 K/mcL (0.10-0.90); Monocytes % (Auto) 1.1 % (1.0-12.0); Neutrophils % (Auto) 90.8 % (38.0-78.0); Platelet Count 181 K/mcL (140-440); RBC 4.08 M/mcL (4.63-6.08); Red Cell Distribution Width 14.6 % (11.5-14.5); WBC 3.7 K/mcL (4.5-11.0)
[2022-03-14 07:28] LABS: ALT/SGPT 37 U/L (<40); AST/SGOT 42 U/L (<40); Albumin 3.2 gm/dL (3.2-5.2); Albumin/Globulin Ratio 1.1 (1.0-2.3); Alkaline Phosphatase 103 U/L (39-117); Bilirubin,Total 0.4 mg/dL (0.1-1.0); Blood Urea Nitrogen 15 mg/dL (8-23); Calcium 9.7 mg/dL (8.6-10.4); Carbon Dioxide 26 mmol/L (22-30); Chloride 95 mmol/L (96-108); Globulin 2.9 gm/dL (2.2-3.7); Glomerular Filtration Rate 68; Glucose 187 mg/dL (70-105)
[2022-03-14] MEDS ORDERED: METOPROLOL TARTRATE 5 MG/5 ML VIAL IV PRN (07:45)
[2022-03-14] MEDS ORDERED: MAGNESIUM SULFATE 8.12 MEQ/2 ML VIAL IV ONE (07:53)
--- NOTE | 2022-03-14 08:00 | Internal Med Progress Note ---
SUBJECTIVE Subjective Patient information: Note initiated : 03/14/22 at 7:53 am Service Date, if different from initiated Date: [] Patient: Arben Andrade 86 y/o M admitted on 03/13/22 for Shortness of breath. Chief Complaint: [] Interval history: Mr. Andrade is a 86 year old M history of lung cancer s/p partial right pneumonectomy in January 2017, COPD, hypertensions, BPH, GERD, presenting with 1 week history of shortness of breath and cough. He presented to [facility] on March 08, 2022, and was being tested positive for RSV. He is presenting with 1 week history of worsening shortness of breath, and cough with sodium phlegms productions. He denies respiratory wheezings. He denies chest pain or chest pressure. He denies palpitations. He experienced shaking chills a day or 2 ago, denies any fever or diaphoresis. He is complaining of general body weakness. Vital signs at ED presentation significant for tachycardia as well as oxygen desaturating in the high 80s on room air. Labs significant for lack of leukocytosis with WBC 7.0. Lactic acid pending. D dimer 3.20. CT angiogram of the chest negative for pulmonary embolism. It shows bilateral lung base infiltrate suggestive of bilateral pneumonia. Patient's developed atrial fibrillation's after a breathing treatment was delivered in the ED, but he subsequently converted back to normal sinus rhythm. Admission request was called for pneumonia as well as COPD exacerbations. 03/14: Afebrile overnight. Blood culture no growth to date; CEPHEID: RSV positive, C OVID/influenza negative. Currently on room air. Had an episode of atrial fibrillation tachycardia heart rate up to the 140s bpm overnight, now converted back to normal sinus rhythm with frequent PVC, serum Mg level 1.7. Patient is complaining of same degree of shortness of breath. He is complaining of mostly nonproductive cough, denies any respiratory wheezing. He is complaining of chest pain when he coughs. Denies any fever, chills, or sweating. Complaining of general body weakness. Stays in med surg telemetry. Supplemental oxygen therapy as needed. Continue Rocephin and Azithromycin. MgSO4 IV replacement. Physical therapy evaluation and treatment. Constitutional Vitals: Vital Signs Temp Pulse Resp BP Pulse Ox O2 Del Method O2 Flow Rate 36.6 C 94 H 20 128/77 96 2 12/11/22 04:01 03/14/22 04:56 03/14/22 04:19 03/14/22 04:01 03/14/22 04:19 03/14/22 04:01 03/14/22 04:01 Period Temp Pulse Resp BP Sys/Erwin Pulse Ox O2 Del Method O2 Flow Rate Last 24 Hr 36.6 C-37.2 C 32-149 12-31 100-167/61-99 84-100 Nasal Cannula- Room Air 0-2 Intake and Output 03/13/22 03/14/22 03/14/22 19:59 03:59 11:59 Intake Total 360 1375 Output Total 125 1295 150 Balance 235 80 -150 Weight 80.059 kg 80.195 kg Intake & Output: Intake & Output 03/13/22 03/14/22 03/14/22 19:59 03:59 11:59 Intake Total 360 1375 Output Total 125 1295 150 Balance 235 80 -150 Weight 80.059 kg 80.195 kg Intake: IV 260 955 Sodium Chloride 0.9% 1,000 ml @ 955 100 mls/hr IV .Q10H [facility] Rx#: [id number] Zithromax 500 mg In Dextrose 5% 250 in Water 250 ml @ 250 mls/hr IV ONCE ONE Rx#:[id number] Heparin/0.45%Ns 25,000 Unit In 10 Premix 1 Bag @ 12 UNIT/KG/HR 19 .377 mls/hr IV .Q24H [facility] Rx#: [id number] Oral 100 420 Output: Void Amount 125 1295 150 Other: Meal Dinner Percent of Meal Consumed 75% Urine Appearance Clear Clear Clear Urine Color Yellow Bright Yellow Dark Yellow Urine Odor Normal Stool Size Small Stool Color Brown Stool Consistency Formed # Bowel Movements 1 General appearance: average body habitus, cooperative and no acute distress Head Head exam: Present atraumatic and normal inspection Eye Eye exam: Present normal appearance ENT ENT exam: Present mucous membranes moist, normal exam and normal external ear exam Neck Neck exam: Present normal inspection Respiratory Respiratory exam: Present decreased breath sounds and rhonchi Cardiovascular Cardiovascular exam: Present normal rate and rhythm GI/Abdominal GI/Abdominal exam: Present normal bowel sounds Back Exam Back exam: Present normal inspection Neurological Exam Neurological exam: Present alert and oriented X3 Skin Skin exam: Present intact and warm OBJ DATA Labs CBC & Chem 7: 03/14/22 05:00 03/14/22 05:56 Labs: Abnormal Lab Results 03/14/22 03/14/22 03/13/22 05:56 05:00 11:20 WBC 3.7 L RBC 4.08 L Hgb 13.2 L Hct 38.4 L RDW 14.6 H Neut % (Auto) 90.8 H Lymph % (Auto) 7.3 L Lymph # (Auto) 0.27 L [place] # (Auto) 0.04 L PT D-Dimer Sodium 132 L POC Chloride Chloride 95 L 94 L POC Total CO2 Glucose 187 H 125 H POC Glucose Calcium 10.8 H AST 42 H 53 H NT-Pro-B Natriuret Pep 1780.0 H 03/13/22 03/13/22 03/13/22 11:20 11:20 11:16 WBC RBC 4.49 L Hgb Hct RDW Neut % (Auto) 78.4 H Lymph % (Auto) 9.6 L Lymph # (Auto) 0.67 L [place] # (Auto) PT 14.7 H D-Dimer 3.20 H Sodium POC Chloride 95 L Chloride POC Total CO2 33.0 H Glucose POC Glucose 127 H Calcium AST NT-Pro-B Natriuret Pep Meds: Medications Acetaminophen (Acetaminophen 325 Mg Tablet) 650 mg PO Q6HP PRN; Protocol PRN Reason: Per Pain Protocol/Fever > 101 Acetaminophen (Acetaminophen 500 Mg Tablet) 1,000 mg PO QPM [facility] Last Admin: 03/13/22 20:19 Dose: 1,000 mg Albuterol Sulfate (Albuterol Sulfate 60 Puff Inhaler) 2 puff INH Q6HP PRN PRN Reason: shortness of breath or wheezing Amlodipine Besylate (Amlodipine 5 Mg Tablet) 5 mg PO HS [facility] Last Admin: 03/13/22 20:20 Dose: 5 mg Aspirin (Aspirin 81 Mg Tab.Chew) 81 mg PO QDAY [facility] Benzonatate (Benzonatate 100 Mg Capsule) 200 mg PO TIDP PRN PRN Reason: Cough Ceftriaxone Sodium (Ceftriaxone 1 Gm Vial) 1 gm IV Q24H [facility] Last Admin: 03/13/22 19:30 Dose: 1 gm Diphenhydramine HCl (Diphenhydramine 25 Mg Capsule) 50 mg PO HS [facility] Last Admin: 03/13/22 20:19 Dose: 50 mg Docusate Sodium (Docusate Sodium 100 Mg Capsule) 100 mg PO BID [facility] Last Admin: 03/13/22 20:21 Dose: Not Given Enoxaparin Sodium (Enoxaparin 40 Mg/0.4 Ml Syringe) 40 mg SQ DAILY [facility] Fluticasone Propionate (Fluticasone Propionate [place].Luis) 1 spray NS DAILY [facility] Furosemide (Furosemide 20 Mg Tablet) 20 mg PO DAILY [facility] Gabapentin (Gabapentin 100 Mg Capsule) 200 mg PO 1600 [facility] Gabapentin (Gabapentin 100 Mg Capsule) 100 mg PO HS [facility] Last Admin: 03/13/22 20:20 Dose: 100 mg Guaifenesin (Guaifenesin/Dextromethorphan Oral Joie) 10 ml PO Q4HP PRN PRN Reason: Cough Last Admin: 03/13/22 21:44 Dose: 10 ml Sodium Chloride (Sodium Chloride 0.9%) 1,000 mls @ 100 mls/hr IV .Q10H [facility] Last Admin: 03/14/22 03:43 Dose: 100 mls/hr Azithromycin 500 mg/ Dextrose 250 mls @ 250 mls/hr IV Q24H [facility]; Protocol Stop: 03/15/22 09:59 Lactobacillus Rhamnosus (Lactobacillus 1 Capsule) 1 cap PO QDAY [facility] Levalbuterol HCl (Levalbuterol 1.25 Mg/3 Ml Ampul.Neb) 1.25 mg NEB Q4HRT [facility] Last Admin: 03/14/22 03:27 Dose: 1.25 mg Lorazepam (Lorazepam 0.5 Mg Tablet) 0.5 mg PO TIDP PRN PRN Reason: Anxiety Last Admin: 03/13/22 20:20 Dose: 0.5 mg Losartan Potassium (Losartan 50 Mg Tablet) 50 mg PO HS [facility] Last Admin: 03/13/22 20:20 Dose: 50 mg Methylprednisolone Sodium Succinate (Methylprednisolone Sod Succ 125 Mg/2 Ml Vial) 125 mg IV Q8 [facility] Last Admin: 03/14/22 05:40 Dose: 125 mg Metoprolol Succinate (Metoprolol Succinate 50 Mg Tab.Xl.24h) 50 mg PO QDAY [facility] Metoprolol Tartrate (Metoprolol Tartrate 5 Mg/5 Ml Vial) 5 mg IV Q5M PRN PRN Reason: Tachyarrhythmias Stop: 03/14/22 07:56 Naproxen (Naproxen 250 Mg Tablet) 250 mg PO Q12HP PRN PRN Reason: Pain Omeprazole (Omeprazole 20 Mg Capsule) 20 mg PO 0730 [facility] Last Admin: 03/14/22 07:20 Dose: 20 mg Ondansetron HCl (Ondansetron 4 Mg/2 Ml Vial) 4 mg IV Q6HP PRN PRN Reason: Nausea And Vomiting Potassium Chloride (Potassium Chlor[facility] 10 Meq Tablet) [facility] Last Admin: 03/14/22 07:20 Dose: 10 meq Fluticasone/Salmeterol (Fluticasone/Salmeterol 250/50 Inhaler #14) 1 puff INH BID [facility] Last Admin: 03/13/22 20:17 Dose: Not Given Senna (Sennosides 1 Tablet) 2 tab PO [facility] Last Admin: 03/13/22 20:21 Dose: Not Given Sodium Chloride (0.9 % Sodium Chloride 10 Ml Syringe) 10 ml IV Q8 [facility] Last Admin: 03/14/22 05:34 Dose: 10 ml Tamsulosin HCl (Tamsulosin 0.4 Mg Capsule) 0.4 mg PO QHS [facility] Last Admin: 03/13/22 20:20 Dose: 0.4 mg Trazodone HCl (Trazodone Hcl 50 Mg Tablet) 25 mg PO HSP PRN PRN Reason: Insomnia Vitamin B Complex (Vitamin B Complex 1 Capsule) 1 cap PO QAM [facility] Vitamin D (Vitamin D3 25 Mcg Tablet) 1,000 mcg PO BID [facility] Last Admin: 03/13/22 20:24 Dose: Not Given A/P Assessment and plan (1) Essential (primary) hypertension: Status: Chronic (2) GERD (gastroesophageal reflux disease): Status: Chronic Qualifiers: Esophagitis presence: without esophagitis Qualified Code(s): K21.9 - Gastro-esophageal reflux disease without esophagitis (3) COPD exacerbation: Status: Acute (4) BPH loc w urin obs/LUTS: Status: Chronic (5) Bilateral pneumonia: Status: Acute Narrative A/P Narrative: Assessment and Plans: 1. Bilateral pneumonia: Inpatient med surg telemetry Supplemental oxygen therapy titrate to achieve spo2>=88% given COPD-er Serial lactic acid 1.3 Procalcitonin 0.08 CEPHEID: RSV positive, COVID/influenza negative Blood culture, no growth to date cbc w/ auto diff in the morning to trend WBC Rocephin Zithromax Tessalon/Robitussin DM PRN cough Saline lock Physical therapy evaluation and treatment 2. COPD exacerbation: Supplemental oxygen therapy titrate to achieve spo2>=88% given COPD-er Solu-Medrol Xopenox (Atrial fibrillation in the ED) Zithromax 3. h/o lung cancer s/p right partial pneumonectomy: Continue to monitor 4. BPH: Continue Flomax 5. GERD: Continue Prilosec 6. Essential hypertension: Amlodipine Lasix Losartan Metoprolol ER GI ppx: Prilosec DVT ppx: Lovenox Code status: Full Prognosis: Guarded Disposition: inpatient med surg telemetry; PT Time Spent With Patient Time: Total time spent is greater than 50% in coordination of care (as documented) at patient's floor/unit and/or counseling patient: Total time spent with greater than 50% in coordination of care (as documented) at patient's floor/unit and/or counseling patient:: 25 - 35 minutes QUALITY Stroke Symptom Onset Unknown: No VTE Deep Vein Thrombosis/Pulmonary Embolism Present on Admission: No
[2022-03-14] MEDS: FLUTICASONE/SALMETEROL 250/50 INHALER #14 INH SCH ×2 (08:12→21:01)
[2022-03-14] MEDS: DOCUSATE SODIUM 100 MG CAPSULE PO SCH ×2 (08:12→19:48)
[2022-03-14] MEDS ORDERED: MAGNESIUM SULFATE 8.12 MEQ in DEXTROSE 5% IN WATER 50 ML IV SCH (09:00)
[2022-03-14] MEDS: BENZONATATE 100 MG CAPSULE PO PRN ×2 (09:02→19:22)
[2022-03-14] MEDS: LACTOBACILLUS 1 CAPSULE PO SCH (09:02)
[2022-03-14] MEDS: FUROSEMIDE 20 MG TABLET PO SCH (09:02)
[2022-03-14] MEDS: ASPIRIN 81 MG TAB.CHEW PO SCH (09:02)
[2022-03-14] MEDS: ENOXAPARIN 40 MG/0.4 ML SYRINGE SQ SCH (09:02)
[2022-03-14] MEDS: VITAMIN B COMPLEX 1 CAPSULE PO SCH (09:02)
[2022-03-14] MEDS: METOPROLOL SUCCINATE 50 MG TAB.XL.24H PO SCH (09:03)
[2022-03-14] MEDS: FLUTICASONE PROPIONATE SPRAY.NAS NS SCH (09:03)
[2022-03-14] MEDS: VITAMIN D3 25 MCG TABLET PO SCH ×2 (09:03→21:01)
[2022-03-14] MEDS: cefTRIAXone 1 GM VIAL IV SCH (09:03)
--- NOTE | 2022-03-14 09:49 | EKG ---
[facility] Test Date: 2022-03-13 Pat Name: Arben Andrade Department: ED Room: Gender: Male [place] Printer: kalee : 1935 Requested By: Patric Hemphill Order Number: [id number] Reading MD: Juan Lopez Measurements Intervals [place] Rate: 90 P: 3 [place]: 215 QRS: -35 QRSD: 128 T: 25 QT: 386 QTc: 473 Interpretive Statements Sinus rhythm Borderline prolonged [place] interval Right bundle branch block Inferior infarct, old Baseline wander in lead(s) V5 Electronically Signed On 03-14-2022 9:49:31 PST by Juan Lopez /store/M0/[id number]/[id number]
--- NOTE | 2022-03-14 09:50 | EKG ---
[facility] Test Date: 2022-03-13 Pat Name: Arben Andrade Department: ED Room: Gender: Male Dip Unit Operator: FELISHA : 1935 Requested By: Patric Hemphill Order Number: [id number] Reading MD: Juan Lopez Measurements Intervals [place] Rate: 154 P: 0 [place]: QRS: -91 QRSD: 136 T: -25 QT: 308 QTc: 494 Interpretive Statements Wide-QRS tachycardia - uncertain mechanism Right bundle branch block Electronically Signed On 03-14-2022 9:50:08 PST by Juan Lopez /store/M0/[id number]/ecg/[id number]
--- NOTE | 2022-03-14 09:50 | EKG ---
[facility] Test Date: 2022-03-13 Pat Name: Arben Andrade Department: ED Room: Gender: Male Cell Builder: LR : 1935 Requested By: Patric Hemphill Order Number: [id number] Reading MD: Juan Lopez Measurements Intervals [place] Rate: 88 P: [place]: QRS: -39 QRSD: 142 T: 29 QT: 364 QTc: 440 Interpretive Statements Atrial fibrillation Ventricular premature complex Right bundle branch block Inferior infarct, old Electronically Signed On 03-14-2022 9:50:16 PST by Juan Lopez /store/M0/[id number].pdf
[2022-03-14] MEDS: AZITHROMYCIN 500 MG in DEXTROSE 5% IN WATER 250 ML IV SCH (10:12)
[2022-03-14] MEDS: METOPROLOL TARTRATE 5 MG/5 ML VIAL IV PRN ×4 (13:35→23:51)
[2022-03-14] MEDS: GABAPENTIN 100 MG CAPSULE PO SCH ×2 (16:20→19:49)
[2022-03-14] MEDS ORDERED: KETOROLAC 30 MG/ML VIAL IV PRN (19:30)
[2022-03-14] MEDS: diphenhydrAMINE 25 MG CAPSULE PO SCH (19:48)
[2022-03-14] MEDS: LORazepam 0.5 MG TABLET PO PRN (19:48)
[2022-03-14] MEDS: SENNOSIDES 1 TABLET PO SCH (19:48)
[2022-03-14] MEDS: TAMSULOSIN 0.4 MG CAPSULE PO SCH (19:49)
[2022-03-14] MEDS: ACETAMINOPHEN 500 MG TABLET PO SCH (19:49)
[2022-03-14] MEDS: LOSARTAN 50 MG TABLET PO SCH (19:49)
[2022-03-14] MEDS: amLODIPine 5 MG TABLET PO SCH (19:49)
[2022-03-15] MEDS: LEVALBUTEROL 1.25 MG/3 ML AMPUL.NEB NEB SCH ×5 (03:27→22:59)
[2022-03-15] MEDS: BENZONATATE 100 MG CAPSULE PO PRN ×2 (03:32→14:09)
[2022-03-15] MEDS ORDERED: METOPROLOL TARTRATE 5 MG/5 ML VIAL IV ONE (03:54)
[2022-03-15] MEDS: METOPROLOL TARTRATE 5 MG/5 ML VIAL IV PRN (03:55)
[2022-03-15] MEDS: methylPREDNISolone SOD SUCC 125 MG/2 ML VIAL IV SCH (05:52)
[2022-03-15] MEDS: 0.9 % SODIUM CHLORIDE 10 ML SYRINGE IV SCH ×3 (05:52→22:06)
[2022-03-15] MEDS ORDERED: METOPROLOL TARTRATE 5 MG/5 ML VIAL IV PRN ×3 (06:50→17:42)
--- NOTE | 2022-03-15 07:05 | Internal Med Progress Note ---
SUBJECTIVE Subjective Patient information: Note initiated : 03/15/22 at 7:02 am Service Date, if different from initiated Date: [] Patient: Arben Andrade a 86 y/o M admitted on 03/13/22 for Shortness of breath. Chief Complaint: [] Interval history: Mr. Andrade is a 86 year old M history of lung cancer s/p partial right pneumonectomy in January 2017, COPD, hypertensions, BPH, GERD, presenting with 1 week history of shortness of breath and cough. [facility], and was being tested positive for RSV. He is presenting with 1 week history of worsening shortness of breath, and cough with sodium phlegms productions. He denies respiratory wheezings. He denies chest pain or chest pressure. He denies palpitations. He experienced shaking chills a day or 2 ago, denies any fever or diaphoresis. He is complaining of general body weakness. Vital signs at ED presentation significant for tachycardia as well as oxygen desaturating in the high 80s on room air. Labs significant for lack of leukocytosis with WBC 7.0. Lactic acid pending. D dimer 3.20. CT angiogram of the chest negative for pulmonary embolism. It shows bilateral lung base infiltrate suggestive of bilateral pneumonia. Patient's developed atrial fibrillation's after a breathing treatment was delivered in the ED, but he subsequently converted back to normal sinus rhythm. Admission request was called for pneumonia as well as COPD exacerbations. 03/14: Afebrile overnight. Blood culture no growth to date; CEPHEID: RSV positive, C OVID/influenza negative. Currently on room air. Had an episode of atrial fibrillation tachycardia heart rate up to the 140s bpm overnight, now converted back to normal sinus rhythm with frequent PVC, serum Mg level 1.7. Patient is complaining of same degree of shortness of breath. He is complaining of mostly nonproductive cough, denies any respiratory wheezing. He is complaining of chest pain when he coughs. Denies any fever, chills, or sweating. Complaining of general body weakness. Stays in med surg telemetry. Supplemental oxygen therapy as needed. Continue Rocephin and Azithromycin. MgSO4 IV replacement. Physical therapy evaluation and treatment. 03/15: Afebrile overnight. Patient is currently on 2 L/min of nasal cannula oxygen. There was no other overnight events. Order cultures been no growth today. Patient is complaining of improving degree of shortness of breath. He is c omplaining of nonproductive cough. He had left-sided rib pain when he was coughing last night but currently he denies such pain. He denies any respiratory wheezings. He denies any fever chills or diaphoresis. Stays in [facility] surg telemetry. Supplemental oxygen therapy as needed, continue to wean as tolerated. Continue Rocephin and Azithromycin. Physical therapy evaluation and treatment. Constitutional Vitals: Vital Signs Temp Pulse Resp BP Pulse Ox O2 Del Method O2 Flow Rate 36.7 C 94 H 22 116/80 96 2 03/15/22 03:48 03/15/22 04:15 03/15/22 04:15 03/15/22 03:48 03/15/22 04:15 03/15/22 03:48 03/15/22 03:48 Period Temp Pulse Resp BP Sys/Erwin Pulse Ox O2 Del Method O2 Flow Rate Last 24 Hr 36.2 C-36.7 C 49-139 12-35 103-144/64-83 87-100 Nasal Cannula- Room Air 0-2 Intake and Output 03/14/22 03/15/22 03/15/22 19:59 03:59 11:59 Intake Total 240 200 Output Total 200 275 Balance 40 -275 200 Weight 82.508 kg Intake & Output: Intake & Output 03/14/22 03/15/22 03/15/22 19:59 03:59 11:59 Intake Total 240 200 Output Total 200 275 Balance 40 -275 200 Weight 82.508 kg Intake: IV 0 Sodium Chloride 0.9% 1,000 ml @ 0 100 mls/hr IV .Q10H [facility] Rx#: [id number] Oral 240 200 Output: Void Amount 200 275 Other: Urine Appearance Clear Clear Urine Color Dark Yellow Dark Yellow # Bowel Movements 0 General appearance: average body habitus, cooperative and no acute distress Head Head exam: Present atraumatic and normal inspection Eye Eye exam: Present normal appearance ENT ENT exam: Present mucous membranes moist, normal exam and normal external ear exam Additional comments: Nasal cannula in place Neck Neck exam: Present normal inspection Respiratory Respiratory exam: Present decreased breath sounds and rhonchi Cardiovascular Cardiovascular exam: Present normal rate and rhythm GI/Abdominal GI/Abdominal exam: Present normal bowel sounds Back Exam Back exam: Present normal inspection Neurological Exam Neurological exam: Present alert and oriented X3 Skin Skin exam: Present intact and warm OBJ DATA Labs CBC & Chem 7: 03/14/22 05:00 03/14/22 05:56 Labs: Abnormal Lab Results 03/14/22 03/14/22 03/13/22 05:56 05:00 11:20 WBC 3.7 L RBC 4.08 L Hgb 13.2 L Hct 38.4 L RDW 14.6 H Neut % (Auto) 90.8 H Lymph % (Auto) 7.3 L Lymph # (Auto) 0.27 L Rooks # (Auto) 0.04 L PT D-Dimer Sodium 132 L POC Chloride Chloride 95 L 94 L POC Total CO2 Glucose 187 H 125 H POC Glucose Calcium 10.8 H AST 42 H 53 H NT-Pro-B Natriuret Pep 1780.0 H 03/13/22 03/13/22 03/13/22 11:20 11:20 11:16 WBC RBC 4.49 L Hgb Hct RDW Neut % (Auto) 78.4 H Lymph % (Auto) 9.6 L Lymph # (Auto) 0.67 L Rooks # (Auto) PT 14.7 H D-Dimer 3.20 H Sodium POC Chloride 95 L Chloride POC Total CO2 33.0 H Glucose POC Glucose 127 H Calcium AST NT-Pro-B Natriuret Pep Meds: Medications Acetaminophen (Acetaminophen 325 Mg Tablet) 650 mg PO Q6HP PRN; Protocol PRN Reason: Per Pain Protocol/Fever > 101 Acetaminophen (Acetaminophen 500 Mg Tablet) 1,000 mg PO QPM [facility] Last Admin: 03/14/22 19:49 Dose: 1,000 mg Albuterol Sulfate (Albuterol Sulfate 60 Puff Inhaler) 2 puff INH Q6HP PRN PRN Reason: shortness of breath or wheezing Amlodipine Besylate (Amlodipine 5 Mg Tablet) 5 mg PO HS [facility] Last Admin: 03/14/22 19:49 Dose: 5 mg Aspirin (Aspirin 81 Mg Tab.Chew) 81 mg PO QDAY [facility] Last Admin: 03/14/22 09:02 Dose: 81 mg Benzonatate (Benzonatate 100 Mg Capsule) 200 mg PO TIDP PRN PRN Reason: Cough Last Admin: 03/15/22 03:32 Dose: 200 mg Ceftriaxone Sodium (Ceftriaxone 1 Gm Vial) 1 gm IV Q24H [facility] Last Admin: 03/14/22 09:03 Dose: 1 gm Diphenhydramine HCl (Diphenhydramine 25 Mg Capsule) 50 mg PO HS [facility] Last Admin: 03/14/22 19:48 Dose: 50 mg Docusate Sodium (Docusate Sodium 100 Mg Capsule) 100 mg PO BID [facility] Last Admin: 03/14/22 19:48 Dose: 100 mg Enoxaparin Sodium (Enoxaparin 40 Mg/0.4 Ml Syringe) 40 mg SQ DAILY [facility] Last Admin: 03/14/22 09:02 Dose: 40 mg Fluticasone Propionate (Fluticasone Propionate [place].Luis) 1 spray NS DAILY [facility] Last Admin: 03/14/22 09:03 Dose: Not Given Furosemide (Furosemide 20 Mg Tablet) 20 mg PO DAILY [facility] Last Admin: 03/14/22 09:02 Dose: 20 mg Gabapentin (Gabapentin 100 Mg Capsule) 200 mg PO 1600 [facility] Last Admin: 03/14/22 16:20 Dose: 200 mg Gabapentin (Gabapentin 100 Mg Capsule) 100 mg PO HS [facility] Last Admin: 03/14/22 19:49 Dose: 100 mg Guaifenesin (Guaifenesin/Dextromethorphan Oral Joie) 10 ml PO Q4HP PRN PRN Reason: Cough Last Admin: 03/13/22 21:44 Dose: 10 ml Azithromycin 500 mg/ Dextrose 250 mls @ 250 mls/hr IV Q24H [facility]; Protocol Stop: 03/15/22 09:59 Last Infusion: 03/14/22 11:15 Dose: Infused Ketorolac Tromethamine (Ketorolac 30 Mg/Ml Vial) 30 mg IV Q6HP PRN PRN Reason: Per Pain Protocol Stop: 03/16/22 19:30 Last Admin: 03/14/22 20:17 Dose: 30 mg Lactobacillus Rhamnosus (Lactobacillus 1 Capsule) 1 cap PO QDAY [facility] Last Admin: 03/14/22 09:02 Dose: 1 cap Levalbuterol HCl (Levalbuterol 1.25 Mg/3 Ml Ampul.Neb) 1.25 mg NEB Q4HRT [facility] Last Admin: 03/15/22 03:27 Dose: 1.25 mg Lorazepam (Lorazepam 0.5 Mg Tablet) 0.5 mg PO TIDP PRN PRN Reason: Anxiety Last Admin: 03/14/22 19:48 Dose: 0.5 mg Losartan Potassium (Losartan 50 Mg Tablet) 50 mg PO HS [facility] Last Admin: 03/14/22 19:49 Dose: 50 mg Methylprednisolone Sodium Succinate (Methylprednisolone Sod Succ 125 Mg/2 Ml Via l) 125 mg IV Q8 [facility] Last Admin: 03/15/22 05:52 Dose: 125 mg Metoprolol Succinate (Metoprolol Succinate 50 Mg Tab.Xl.24h) 50 mg PO QDAY [facility] Last Admin: 03/14/22 09:03 Dose: 50 mg Metoprolol Tartrate (Metoprolol Tartrate 5 Mg/5 Ml Vial) 5 mg IV Q5M PRN PRN Reason: Tachyarrhythmias Stop: 03/15/22 07:11 Naproxen (Naproxen 250 Mg Tablet) 250 mg PO Q12HP PRN PRN Reason: Pain Omeprazole (Omeprazole 20 Mg Capsule) 20 mg PO 0730 [facility] Last Admin: 03/14/22 07:20 Dose: 20 mg Ondansetron HCl (Ondansetron 4 Mg/2 Ml Vial) 4 mg IV Q6HP PRN PRN Reason: Nausea And Vomiting Potassium Chloride (Potassium Chloride 10 Meq Tablet) 10 meq PO QAC [facility] Last Admin: 03/14/22 07:20 Dose: 10 meq Fluticasone/Salmeterol (Fluticasone/Salmeterol 250/50 Inhaler #14) 1 puff INH BID [facility] Last Admin: 03/14/22 21:01 Dose: Not Given Senna (Sennosides 1 Tablet) 2 tab PO [facility] Last Admin: 03/14/22 19:48 Dose: 2 tab Sodium Chloride (0.9 % Sodium Chloride 10 Ml Syringe) 10 ml IV Q8 [facility] Last Admin: 03/15/22 05:52 Dose: 10 ml Tamsulosin HCl (Tamsulosin 0.4 Mg Capsule) 0.4 mg PO QHS [facility] Last Admin: 03/14/22 19:49 Dose: 0.4 mg Trazodone HCl (Trazodone Hcl 50 Mg Tablet) 25 mg PO HSP PRN PRN Reason: Insomnia Vitamin B Complex (Vitamin B Complex 1 Capsule) 1 cap PO QAM [facility] Last Admin: 03/14/22 09:02 Dose: 1 cap Vitamin D (Vitamin D3 25 Mcg Tablet) 1,000 mcg PO BID [facility] Last Admin: 03/14/22 21:01 Dose: Not Given A/P Assessment and plan (1) Essential (primary) hypertension: Status: Chronic (2) GERD (gastroesophageal reflux disease): Status: Chronic Qualifiers: Esophagitis presence: without esophagitis Qualified Code(s): K21.9 - Gastro-esophageal reflux disease without esophagitis (3) COPD exacerbation: Status: Acute (4) BPH loc w urin obs/LUTS: Status: Chronic (5) Bilateral pneumonia: Status: Acute Narrative A/P Narrative: Assessment and Plans: 1. Bilateral pneumonia: Inpatient med surg telemetry Supplemental oxygen therapy titrate to achieve spo2>=88% given COPD-er Serial lactic acid 1.3 Procalcitonin 0.08 CEPHEID: RSV positive, COVID/influenza negative Blood culture, no growth to date cbc w/ auto diff in the morning to trend WBC Rocephin Zithromax Tessalon/Robitussin DM PRN cough Saline lock Physical therapy evaluation and treatment 2. COPD exacerbation: Supplemental oxygen therapy titrate to achieve spo2>=88% given COPD-er Solu-Medrol Xopenox (Atrial fibrillation in the ED) Zithromax 3. h/o lung cancer s/p right partial pneumonectomy: Continue to monitor 4. BPH: Continue Flomax 5. GERD: Continue Prilosec 6. Essential hypertension: Amlodipine Lasix Losartan Metoprolol ER GI ppx: Prilosec DVT ppx: Lovenox Code status: Full Prognosis: Guarded Disposition: inpatient med surg telemetry; PT Time Spent With Patient Time: Total time spent is greater than 50% in coordination of care (as documented) at patient's floor/unit and/or counseling patient: Total time spent with greater than 50% in coordination of care (as documented) at patient's floor/unit and/or counseling patient:: 25 - 35 minutes QUALITY Stroke Symptom Onset Unknown: No VTE Deep Vein Thrombosis/Pulmonary Embolism Present on Admission: No
[2022-03-15] MEDS: OMEPRAZOLE 20 MG CAPSULE PO SCH (07:11)
[2022-03-15 07:21] LABS: Basophils # (Auto) 0.01 K/mcL (0.00-0.30); Basophils % (Auto) 0.1 % (0.0-2.0); Eosinophils # (Auto) 0 K/mcL (0.00-0.70); Eosinophils % (Auto) 0 % (0.0-7.0); Hematocrit 36.6 % (40.1-51.0); Lymphocytes # (Auto) 0.56 K/mcL (1.50-4.80); Lymphocytes % (Auto) 4.7 % (15.5-49.0); Mean Cell Volume 93.8 fL (80.0-100.0); Mean Corpuscular HGB Conc 35.5 g/dL (31.0-36.0); Mean Platelet Volume 9.7 fL (8.8-12.5); Monocytes # (Auto) 0.39 K/mcL (0.10-0.90); Monocytes % (Auto) 3.3 % (1.0-12.0); Neutrophils % (Auto) 91.2 % (38.0-78.0); Platelet Count 211 K/mcL (140-440); Red Cell Distribution Width 14.7 % (11.5-14.5); WBC 11.9 K/mcL (4.5-11.0)
[2022-03-15 07:59] LABS: ALT/SGPT 28 U/L (<40); AST/SGOT 24 U/L (<40); Albumin 3.2 gm/dL (3.2-5.2); Albumin/Globulin Ratio 1.2 (1.0-2.3); Alkaline Phosphatase 96 U/L (39-117); Bilirubin,Total 0.2 mg/dL (0.1-1.0); Blood Urea Nitrogen 27 mg/dL (8-23); Calcium 10.4 mg/dL (8.6-10.4); Carbon Dioxide 25 mmol/L (22-30); Chloride 94 mmol/L (96-108); Globulin 2.6 gm/dL (2.2-3.7); Glomerular Filtration Rate 61; Glucose 189 mg/dL (70-105)
[2022-03-15] MEDS: POTASSIUM CHLORIDE 10 MEQ TABLET PO SCH (08:02)
[2022-03-15] MEDS: LACTOBACILLUS 1 CAPSULE PO SCH (08:02)
[2022-03-15] MEDS: ASPIRIN 81 MG TAB.CHEW PO SCH (08:02)
[2022-03-15] MEDS: VITAMIN B COMPLEX 1 CAPSULE PO SCH (08:02)
[2022-03-15] MEDS: ENOXAPARIN 40 MG/0.4 ML SYRINGE SQ SCH (08:03)
[2022-03-15] MEDS: FUROSEMIDE 20 MG TABLET PO SCH (08:03)
[2022-03-15] MEDS: METOPROLOL SUCCINATE 50 MG TAB.XL.24H PO SCH ×3 (08:04→20:38)
[2022-03-15] MEDS: VITAMIN D3 25 MCG TABLET PO SCH ×2 (08:10→20:39)
[2022-03-15] MEDS: DOCUSATE SODIUM 100 MG CAPSULE PO SCH ×2 (09:15→20:27)
[2022-03-15] MEDS: FLUTICASONE/SALMETEROL 250/50 INHALER #14 INH SCH ×2 (09:15→20:27)
[2022-03-15] MEDS: cefTRIAXone 1 GM VIAL IV SCH (09:24)
[2022-03-15] MEDS: AZITHROMYCIN 500 MG in DEXTROSE 5% IN WATER 250 ML IV SCH (09:25)
[2022-03-15] MEDS: FLUTICASONE PROPIONATE SPRAY.NAS NS SCH (09:26)
--- NOTE | 2022-03-15 13:21 | Internal Med Progress Note ---
SUBJECTIVE Subjective Patient information: Note initiated : 03/15/22 at 1:15 pm Service Date, if different from initiated Date: [] Patient: Arben Andrade a 86 y/o M admitted on 03/13/22 for Shortness of breath. Chief Complaint: [] Interval history: Mr. Andrade is a 86 year old M history of lung cancer s/p partial right pneumonectomy in January 2017, COPD, hypertensions, BPH, GERD, presenting with 1 week history of shortness of breath and cough. He presented to [facility] on March 08, 2022, and was being tested positive for RSV. He is presenting with 1 week history of worsening shortness of breath, and cough with sodium phlegms productions. He denies respiratory wheezings. He denies chest pain or chest pressure. He denies palpitations. He experienced shaking chills a day or 2 ago, denies any fever or diaphoresis. He is complaining of general body weakness. Vital signs at ED presentation significant for tachycardia as well as oxygen desaturating in the high 80s on room air. Labs significant for lack of leukocytosis with WBC 7.0. Lactic acid pending. D dimer 3.20. CT angiogram of the chest negative for pulmonary embolism. It shows bilateral lung base infiltrate suggestive of bilateral pneumonia. Patient's developed atrial fibrillation's after a breathing treatment was delivered in the ED, but he subsequently converted back to normal sinus rhythm. Admission request was called for pneumonia as well as COPD exacerbations. 03/14: Afebrile overnight. Blood culture no growth to date; CEPHEID: RSV positive, C OVID/influenza negative. Currently on room air. Had an episode of atrial fibrillation tachycardia heart rate up to the 140s bpm overnight, now converted back to normal sinus rhythm with frequent PVC, serum Mg level 1.7. Patient is complaining of same degree of shortness of breath. He is complaining of mostly nonproductive cough, denies any respiratory wheezing. He is complaining of chest pain when he coughs. Denies any fever, chills, or sweating. Complaining of general body weakness. Stays in med surg telemetry. Supplemental oxygen therapy as needed. Continue Rocephin and Azithromycin. MgSO4 IV replacement. Physical therapy evaluation and treatment. 03/15: Afebrile overnight. Patient is currently on 2 L/min of nasal cannula oxygen. There was no other overnight events. Order cultures been no growth today. Patient is complaining of improving degree of shortness of breath. He is c omplaining of nonproductive cough. He had left-sided rib pain when he was coughing last night but currently he denies such pain. He denies any respiratory wheezings. He denies any fever chills or diaphoresis. Stays in [facility] surg telemetry. Supplemental oxygen therapy as needed, continue to wean as tolerated. Continue Rocephin and Azithromycin. Physical therapy evaluation and treatment. Constitutional Vitals: Vital Signs Temp Pulse Resp BP Pulse Ox O2 Del Method O2 Flow Rate 97.7 F 104 H 24 H 114/68 94 1.5 03/15/22 11:27 03/15/22 11:49 03/15/22 12:01 03/15/22 11:27 03/15/22 11:49 03/15/22 11:49 03/15/22 07:27 Period Temp Pulse Resp BP Sys/Erwin Pulse Ox O2 Del Method O2 Flow Rate Last 24 Hr 97.7 F-98.3 F 49-139 14-35 103-140/64-83 87-99 Nasal Cannula- Room Air 0-2 Intake and Output 03/15/22 03/15/22 03/15/22 03:59 11:59 19:59 Intake Total 750 Output Total 275 275 Balance -275 475 Weight 82.508 kg Intake & Output: Intake & Output 03/15/22 03/15/22 03/15/22 03:59 11:59 19:59 Intake Total 750 Output Total 275 275 Balance -275 475 Weight 82.508 kg Intake: IV 250 Zithromax 500 mg In Dextrose 5% 250 in Water 250 ml @ 250 mls/hr IV Q24H [facility] Rx#:[id number] Oral 500 Output: Void Amount 275 275 Other: Urine Appearance Clear Clear Urine Color Dark Yellow Yellow Stool Size Small Stool Color Brown Stool Consistency Formed # Voids 1 # Bowel Movements 0 1 Exam: General: Alert, Awake, No acute Distress Eyes/N/T: EOMI, Head/Neck: neck supple, CV: RRR, No murmurs, Pulm: Decreased and rhonchi b/l, no Abd: soft, nontender, +BS x4 Ext: no clubbing/cyanosis/edema Neuro: Alert, no focal deficits, moves all extremities, Skin: warm/dry OBJ DATA Labs CBC & Chem 7: 03/15/22 05:27 03/15/22 05:27 Labs: Abnormal Lab Results 03/15/22 03/15/22 03/14/22 05:27 05:27 05:56 WBC 11.9 H RBC 3.90 L Hgb 13.0 L Hct 36.6 L RDW 14.7 H Immature Gran % (Auto) 0.7 H Neut % (Auto) 91.2 H Lymph % (Auto) 4.7 L Lymph # (Auto) 0.56 L Williams # (Auto) Immature Gran # 0.08 H Absolute Neutrophils 10.89 H PT D-Dimer Sodium 131 L POC Chloride Chloride 94 L 95 L POC Total CO2 BUN 27 H Glucose 189 H 187 H POC Glucose Calcium AST 42 H NT-Pro-B Natriuret Pep Total Protein 5.8 L 03/14/22 03/13/22 03/13/22 05:00 11:20 11:20 WBC 3.7 L RBC 4.08 L Hgb 13.2 L Hct 38.4 L RDW 14.6 H Immature Gran % (Auto) Neut % (Auto) 90.8 H Lymph % (Auto) 7.3 L Lymph # (Auto) 0.27 L Williams # (Auto) 0.04 L Immature Gran # Absolute Neutrophils PT 14.7 H D-Dimer 3.20 H Sodium 132 L POC Chloride Chloride 94 L POC Total CO2 BUN Glucose 125 H POC Glucose Calcium 10.8 H AST 53 H NT-Pro-B Natriuret Pep 1780.0 H Total Protein 03/13/22 03/13/22 11:20 11:16 WBC RBC 4.49 L Hgb Hct RDW Immature Gran % (Auto) Neut % (Auto) 78.4 H Lymph % (Auto) 9.6 L Lymph # (Auto) 0.67 L Williams # (Auto) Immature Gran # Absolute Neutrophils PT D-Dimer Sodium POC Chloride 95 L Chloride POC Total CO2 33.0 H BUN Glucose POC Glucose 127 H Calcium AST NT-Pro-B Natriuret Pep Total Protein Meds: Medications Acetaminophen (Acetaminophen 325 Mg Tablet) 650 mg PO Q6HP PRN; Protocol PRN Reason: Per Pain Protocol/Fever > 101 Last Admin: 03/15/22 07:10 Dose: 650 mg Acetaminophen (Acetaminophen 500 Mg Tablet) 1,000 mg PO QPM [facility] Last Admin: 03/14/22 19:49 Dose: 1,000 mg Albuterol Sulfate (Albuterol Sulfate 60 Puff Inhaler) 2 puff INH Q6HP PRN PRN Reason: shortness of breath or wheezing Amlodipine Besylate (Amlodipine 5 Mg Tablet) 5 mg PO HS [facility] Last Admin: 03/14/22 19:49 Dose: 5 mg Aspirin (Aspirin 81 Mg Tab.Chew) 81 mg PO QDAY [facility] Last Admin: 03/15/22 08:02 Dose: 81 mg Benzonatate (Benzonatate 100 Mg Capsule) 200 mg PO TIDP PRN PRN Reason: Cough Last Admin: 03/15/22 03:32 Dose: 200 mg Ceftriaxone Sodium (Ceftriaxone 1 Gm Vial) 1 gm IV Q24H [facility] Last Admin: 03/15/22 09:24 Dose: 1 gm Diphenhydramine HCl (Diphenhydramine 25 Mg Capsule) 50 mg PO HS [facility] Last Admin: 03/14/22 19:48 Dose: 50 mg Docusate Sodium (Docusate Sodium 100 Mg Capsule) 100 mg PO BID [facility] Last Admin: 03/15/22 09:15 Dose: Not Given Enoxaparin Sodium (Enoxaparin 40 Mg/0.4 Ml Syringe) 40 mg SQ DAILY [facility] Last Admin: 03/15/22 08:03 Dose: 40 mg Fluticasone Propionate (Fluticasone Propionate [place].Luis) 1 spray NS DAILY [facility] Last Admin: 03/15/22 09:26 Dose: 1 spray Furosemide (Furosemide 20 Mg Tablet) 20 mg PO DAILY [facility] Last Admin: 03/15/22 08:03 Dose: 20 mg Gabapentin (Gabapentin 100 Mg Capsule) 200 mg PO 1600 [facility] Last Admin: 03/14/22 16:20 Dose: 200 mg Gabapentin (Gabapentin 100 Mg Capsule) 100 mg PO HS [facility] Last Admin: 03/14/22 19:49 Dose: 100 mg Guaifenesin (Guaifenesin/Dextromethorphan Oral Joie) 10 ml PO Q4HP PRN PRN Reason: Cough Last Admin: 03/13/22 21:44 Dose: 10 ml Ketorolac Tromethamine (Ketorolac 30 Mg/Ml Vial) 30 mg IV Q6HP PRN PRN Reason: Per Pain Protocol Stop: 03/16/22 19:30 Last Admin: 03/14/22 20:17 Dose: 30 mg Lactobacillus Rhamnosus (Lactobacillus 1 Capsule) 1 cap PO QDAY [facility] Last Admin: 03/15/22 08:02 Dose: 1 cap Levalbuterol HCl (Levalbuterol 1.25 Mg/3 Ml Ampul.Neb) 1.25 mg NEB Q4HRT [facility] Last Admin: 03/15/22 11:48 Dose: 1.25 mg Lorazepam (Lorazepam 0.5 Mg Tablet) 0.5 mg PO TIDP PRN PRN Reason: Anxiety Last Admin: 03/14/22 19:48 Dose: 0.5 mg Losartan Potassium (Losartan 50 Mg Tablet) 50 mg PO [facility] Last Admin: 03/14/22 19:49 Dose: 50 mg Methylprednisolone Sodium Succinate (Methylprednisolone Sod Succ 125 Mg/2 Ml Vial) 125 mg IV Q8 [facility] Last Admin: 03/15/22 05:52 Dose: 125 mg Metoprolol Succinate (Metoprolol Succinate 50 Mg Tab.Xl.24h) 50 mg PO BID [facility] Last Admin: 03/15/22 09:17 Dose: Not Given Metoprolol Tartrate (Metoprolol Tartrate 5 Mg/5 Ml Vial) 5 mg IV Q1H PRN PRN Reason: Tachyarrhythmias Last Admin: 03/15/22 08:00 Dose: 5 mg Naproxen (Naproxen 250 Mg Tablet) 250 mg PO Q12HP PRN PRN Reason: Pain Omeprazole (Omeprazole 20 Mg Capsule) 20 mg PO 0730 [facility] Last Admin: 03/15/22 07:11 Dose: 20 mg Ondansetron HCl (Ondansetron 4 Mg/2 Ml Vial) 4 mg IV Q6HP PRN PRN Reason: Nausea And Vomiting Potassium Chloride (Potassium Chloride 10 Meq Tablet) 10 meq PO QAMCC [facility] Last Admin: 03/15/22 08:02 Dose: 10 meq Fluticasone/Salmeterol (Fluticasone/Salmeterol 250/50 Inhaler #14) 1 puff INH BID [facility] Last Admin: 03/15/22 09:15 Dose: Not Given Senna (Sennosides 1 Tablet) 2 tab PO [facility] Last Admin: 03/14/22 19:48 Dose: 2 tab Sodium Chloride (0.9 % Sodium Chloride 10 Ml Syringe) 10 ml IV Q8 [facility] Last Admin: 03/15/22 05:52 Dose: 10 ml Tamsulosin HCl (Tamsulosin 0.4 Mg Capsule) 0.4 mg PO QHS [facility] Last Admin: 03/14/22 19:49 Dose: 0.4 mg Trazodone HCl (Trazodone Hcl 50 Mg Tablet) 25 mg PO HSP PRN PRN Reason: Insomnia Vitamin B Complex (Vitamin B Complex 1 Capsule) 1 cap PO QAM [facility] Last Admin: 03/15/22 08:02 Dose: 1 cap Vitamin D (Vitamin D3 25 Mcg Tablet) 25 mcg PO BID [facility] Last Admin: 03/15/22 08:10 Dose: 25 mcg A/P Narrative A/P Narrative: Assessment and Plans: *Acute on chronic hypoxic respiratory failure: -Supplemental oxygen wean as able *Bilateral pneumonia: -CEPHEID: RSV positive, COVID/influenza negative -empiric Rocephin / Zithromax *AECOPD (2L O2@night, home): -Solu-Medrol (wean) -nebs, Zithromax *h/o lung cancer and right partial pneumonectomy: Continue to monitor *GERD: Continue Prilosec *HTN: Amlodipine, Losartan, Metoprolol ER, lasix *Generalized weakness/deconditioning: PT/ OT * ppx: Lovenox / home ppi Time Spent With Patient Time: Total time spent is greater than 50% in coordination of care (as documented) at patient's floor/unit and/or counseling patient: QUALITY Stroke Symptom Onset Unknown: No VTE Deep Vein Thrombosis/Pulmonary Embolism Present on Admission: No
[2022-03-15] MEDS ORDERED: methylPREDNISolone SOD SUCC 125 MG/2 ML VIAL IV SCH (14:00)
[2022-03-15] MEDS: GABAPENTIN 100 MG CAPSULE PO SCH ×2 (17:34→20:37)
[2022-03-15] MEDS: methylPREDNISolone SOD SUCC 40 MG/ML VIAL IV SCH ×2 (17:44→22:06)
[2022-03-15] MEDS: diphenhydrAMINE 25 MG CAPSULE PO SCH (20:27)
[2022-03-15] MEDS: TAMSULOSIN 0.4 MG CAPSULE PO SCH (20:28)
[2022-03-15] MEDS: LOSARTAN 50 MG TABLET PO SCH (20:28)
[2022-03-15] MEDS: SENNOSIDES 1 TABLET PO SCH (20:37)
[2022-03-15] MEDS: amLODIPine 5 MG TABLET PO SCH (20:37)
[2022-03-15] MEDS: ACETAMINOPHEN 500 MG TABLET PO SCH (20:38)
[2022-03-15] MEDS: LORazepam 0.5 MG TABLET PO PRN (20:39)
[2022-03-15] MEDS: guaiFENesin/DEXTROMETHORPHAN ORAL SOL PO PRN (20:44)
[2022-03-16] MEDS: LEVALBUTEROL 1.25 MG/3 ML AMPUL.NEB NEB SCH ×2 (02:45→08:50)
[2022-03-16] MEDS: guaiFENesin/DEXTROMETHORPHAN ORAL SOL PO PRN (02:45)
[2022-03-16] MEDS: methylPREDNISolone SOD SUCC 40 MG/ML VIAL IV SCH ×2 (06:18→14:14)
[2022-03-16] MEDS: 0.9 % SODIUM CHLORIDE 10 ML SYRINGE IV SCH ×2 (06:19→14:14)
[2022-03-16 07:48] LABS: ALT/SGPT 25 U/L (<40); AST/SGOT 20 U/L (<40); Albumin 3.1 gm/dL (3.2-5.2); Albumin/Globulin Ratio 1.2 (1.0-2.3); Alkaline Phosphatase 85 U/L (39-117); Bilirubin,Direct < 0.2 mg/dL (0-0.3); Bilirubin,Total 0.2 mg/dL (0.1-1.0); Blood Urea Nitrogen 38 mg/dL (8-23); Calcium 10.7 mg/dL (8.6-10.4); Carbon Dioxide 29 mmol/L (22-30); Chloride 94 mmol/L (96-108); Globulin 2.6 gm/dL (2.2-3.7); Glomerular Filtration Rate 55; Glucose 146 mg/dL (70-105); Lactate Dehydrogenase 142 U/L (135-225); Phosphorous 3.8 mg/dL (2.5-4.5); Triglycerides 77 mg/dL (<150); Uric Acid 6.4 mg/dL (2.5-8.0)
--- NOTE | 2022-03-16 07:49 | Internal Med Progress Note ---
SUBJECTIVE Subjective Patient information: Note initiated : 03/16/22 at 7:47 am Service Date, if different from initiated Date: [] Patient: Arben Andrade a 86 y/o M admitted on 03/13/22 for Shortness of breath. Chief Complaint: [] Interval history: Mr. Andrade is a 86 year old M history of lung cancer s/p partial right pneumonectomy in January 2017, COPD, hypertensions, BPH, GERD, presenting with 1 week history of shortness of breath and cough. He presented to [facility] on March 08, 2022, and was being tested positive for RSV. He is presenting with 1 week history of worsening shortness of breath, and cough with sodium phlegms productions. He denies respiratory wheezings. He denies chest pain or chest pressure. He denies palpitations. He experienced shaking chills a day or 2 ago, denies any fever or diaphoresis. He is complaining of general body weakness. Vital signs at ED presentation significant for tachycardia as well as oxygen desaturating in the high 80s on room air. Labs significant for lack of leukocytosis with WBC 7.0. Lactic acid pending. D dimer 3.20. CT angiogram of the chest negative for pulmonary embolism. It shows bilateral lung base infiltrate suggestive of bilateral pneumonia. Patient's developed atrial fibrillation's after a breathing treatment was delivered in the ED, but he subsequently converted back to normal sinus rhythm. Admission request was called for pneumonia as well as COPD exacerbations. 03/14: Afebrile overnight. Blood culture no growth to date; CEPHEID: RSV positive, C OVID/influenza negative. Currently on room air. Had an episode of atrial fibrillation tachycardia heart rate up to the 140s bpm overnight, now converted back to normal sinus rhythm with frequent PVC, serum Mg level 1.7. Patient is complaining of same degree of shortness of breath. He is complaining of mostly nonproductive cough, denies any respiratory wheezing. He is complaining of chest pain when he coughs. Denies any fever, chills, or sweating. Complaining of general body weakness. Stays in med surg telemetry. Supplemental oxygen therapy as needed. Continue Rocephin and Azithromycin. MgSO4 IV replacement. Physical therapy evaluation and treatment. 03/15: Afebrile overnight. Patient is currently on 2 L/min of nasal cannula oxygen. There was no other overnight events. Order cultures been no growth today. Patient is complaining of improving degree of shortness of breath. He is c omplaining of nonproductive cough. He had left-sided rib pain when he was coughing last night but currently he denies such pain. He denies any respiratory wheezings. He denies any fever chills or diaphoresis. Stays in med surg telemetry. Supplemental oxygen therapy as needed, continue to wean as tolerated. Continue Rocephin and Azithromycin. Physical therapy evaluation and treatment. Constitutional Vitals: Vital Signs Temp Pulse Resp BP Pulse Ox O2 Del Method O2 Flow Rate 98.3 F 71 17 128/75 94 0 03/16/22 00:38 03/16/22 06:16 03/16/22 06:16 03/16/22 00:38 03/16/22 06:16 03/16/22 00:38 03/16/22 00:38 Period Temp Pulse Resp BP Sys/Erwin Pulse Ox O2 Del Method O2 Flow Rate Last 24 Hr 97.7 F-98.3 F 71-104 16-28 110-142/66-84 93-99 Nasal Cannula- Room Air 0-0 Intake and Output 03/15/22 03/16/22 03/16/22 19:59 03:59 11:59 Intake Total 540 680 420 Output Total 500 240 525 Balance 40 440 -105 Weight 82.508 kg 84.096 kg Intake & Output: Intake & Output 03/15/22 03/16/22 03/16/22 19:59 03:59 11:59 Intake Total 540 680 420 Output Total 500 240 525 Balance 40 440 -105 Weight 82.508 kg 84.096 kg Intake: Oral 540 680 420 Output: Void Amount 500 240 525 Other: Meal Dinner Percent of Meal Consumed 50% Urine Appearance Clear Clear Clear Urine Color Yellow Yellow Yellow Stool Size Smear Stool Color Brown Stool Consistency Formed Hilary # Voids 1 # Bowel Movements 1 OBJ DATA Labs CBC & Chem 7: 03/16/22 05:20 03/16/22 05:20 Labs: Abnormal Lab Results 03/15/22 03/15/22 03/14/22 05:27 05:27 05:56 WBC 11.9 H RBC 3.90 L Hgb 13.0 L Hct 36.6 L RDW 14.7 H Immature Gran % (Auto) 0.7 H Neut % (Auto) 91.2 H Lymph % (Auto) 4.7 L Lymph # (Auto) 0.56 L [place] # (Auto) Immature Gran # 0.08 H Absolute Neutrophils 10.89 H PT D-Dimer Sodium 131 L POC Chloride Chloride 94 L 95 L POC Total CO2 BUN 27 H Glucose 189 H 187 H POC Glucose Calcium AST 42 H NT-Pro-B Natriuret Pep Total Protein 5.8 L 03/14/22 03/13/22 03/13/22 05:00 11:20 11:20 WBC 3.7 L RBC 4.08 L Hgb 13.2 L Hct 38.4 L RDW 14.6 H Immature Gran % (Auto) Neut % (Auto) 90.8 H Lymph % (Auto) 7.3 L Lymph # (Auto) 0.27 L [place] # (Auto) 0.04 L Immature Gran # Absolute Neutrophils PT 14.7 H D-Dimer 3.20 H Sodium 132 L POC Chloride Chloride 94 L POC Total CO2 BUN Glucose 125 H POC Glucose Calcium 10.8 H AST 53 H NT-Pro-B Natriuret Pep 1780.0 H Total Protein 03/13/22 03/13/22 11:20 11:16 WBC RBC 4.49 L Hgb Hct RDW Immature Gran % (Auto) Neut % (Auto) 78.4 H Lymph % (Auto) 9.6 L Lymph # (Auto) 0.67 L [place] # (Auto) Immature Gran # Absolute Neutrophils PT D-Dimer Sodium POC Chloride 95 L Chloride POC Total CO2 33.0 H BUN Glucose POC Glucose 127 H Calcium AST NT-Pro-B Natriuret Pep Total Protein Meds: Medications Acetaminophen (Acetaminophen 325 Mg Tablet) 650 mg PO Q6HP PRN; Protocol PRN Reason: Per Pain Protocol/Fever > 101 Last Admin: 03/15/22 07:10 Dose: 650 mg Acetaminophen (Acetaminophen 500 Mg Tablet) 1,000 mg PO QPM [facility] Last Admin: 03/15/22 20:38 Dose: 1,000 mg Albuterol Sulfate (Albuterol Sulfate 60 Puff Inhaler) 2 puff INH Q6HP PRN PRN Reason: shortness of breath or wheezing Amlodipine Besylate (Amlodipine 5 Mg Tablet) 5 mg PO HS [facility] Last Admin: 03/15/22 20:37 Dose: 5 mg Aspirin (Aspirin 81 Mg Tab.Chew) 81 mg PO QDAY [facility] Last Admin: 03/15/22 08:02 Dose: 81 mg Benzonatate (Benzonatate 100 Mg Capsule) 200 mg PO TIDP PRN PRN Reason: Cough Last Admin: 03/15/22 14:09 Dose: 200 mg Ceftriaxone Sodium (Ceftriaxone 1 Gm Vial) 1 gm IV Q24H [facility] Last Admin: 03/15/22 09:24 Dose: 1 gm Diphenhydramine HCl (Diphenhydramine 25 Mg Capsule) 50 mg PO HS [facility] Last Admin: 03/15/22 20:27 Dose: 50 mg Docusate Sodium (Docusate Sodium 100 Mg Capsule) 100 mg PO BID [facility] Last Admin: 03/15/22 20:27 Dose: 100 mg Enoxaparin Sodium (Enoxaparin 40 Mg/0.4 Ml Syringe) 40 mg SQ DAILY [facility] Last Admin: 03/15/22 08:03 Dose: 40 mg Fluticasone Propionate (Fluticasone Propionate [place].Luis) 1 spray NS DAILY [facility] Last Admin: 03/15/22 09:26 Dose: 1 spray Furosemide (Furosemide 20 Mg Tablet) 20 mg PO DAILY [facility] Last Admin: 03/15/22 08:03 Dose: 20 mg Gabapentin (Gabapentin 100 Mg Capsule) 200 mg PO 1600 [facility] Last Admin: 03/15/22 17:34 Dose: 200 mg Gabapentin (Gabapentin 100 Mg Capsule) 100 mg PO HS [facility] Last Admin: 03/15/22 20:37 Dose: 100 mg Guaifenesin (Guaifenesin/Dextromethorphan Oral Joie) 10 ml PO Q4HP PRN PRN Reason: Cough Last Admin: 03/16/22 02:45 Dose: 10 ml Ketorolac Tromethamine (Ketorolac 30 Mg/Ml Vial) 30 mg IV Q6HP PRN PRN Reason: Per Pain Protocol Stop: 03/16/22 19:30 Last Admin: 03/14/22 20:17 Dose: 30 mg Lactobacillus Rhamnosus (Lactobacillus 1 Capsule) 1 cap PO QDAY [facility] Last Admin: 03/15/22 08:02 Dose: 1 cap Levalbuterol HCl (Levalbuterol 1.25 Mg/3 Ml Ampul.Neb) 1.25 mg NEB Q4HRT [facility] Last Admin: 03/16/22 02:45 Dose: 1.25 mg Lorazepam (Lorazepam 0.5 Mg Tablet) 0.5 mg PO TIDP PRN PRN Reason: Anxiety Last Admin: 03/15/22 20:39 Dose: 0.5 mg Losartan Potassium (Losartan 50 Mg Tablet) 50 mg PO [facility] Last Admin: 03/15/22 20:28 Dose: 50 mg Methylprednisolone Sodium Succinate (Methylprednisolone Sod Succ 40 Mg/Ml Vial) 40 mg IV Q8 [facility] Last Admin: 03/16/22 06:18 Dose: 40 mg Metoprolol Succinate (Metoprolol Succinate 50 Mg Tab.Xl.24h) 50 mg PO BID [facility] Last Admin: 03/15/22 20:38 Dose: 50 mg Metoprolol Tartrate (Metoprolol Tartrate 5 Mg/5 Ml Vial) 5 mg IV Q5M PRN PRN Reason: Tachyarrhythmias Naproxen (Naproxen 250 Mg Tablet) 250 mg PO Q12HP PRN PRN Reason: Pain Omeprazole (Omeprazole 20 Mg Capsule) 20 mg PO 0730 [facility] Last Admin: 03/15/22 07:11 Dose: 20 mg Ondansetron HCl (Ondansetron 4 Mg/2 Ml Vial) 4 mg IV Q6HP PRN PRN Reason: Nausea And Vomiting Potassium Chloride (Potassium Chloride 10 Meq Tablet) 10 meq [facility] Last Admin: 03/15/22 08:02 Dose: 10 meq Fluticasone/Salmeterol (Fluticasone/Salmeterol 250/50 Inhaler #14) 1 puff INH BID [facility] Last Admin: 03/15/22 20:27 Dose: Not Given Senna (Sennosides 1 Tablet) 2 tab PO [facility] Last Admin: 03/15/22 20:37 Dose: 2 tab Sodium Chloride (0.9 % Sodium Chloride 10 Ml Syringe) 10 ml IV Q8 [facility] Last Admin: 03/16/22 06:19 Dose: 10 ml Tamsulosin HCl (Tamsulosin 0.4 Mg Capsule) 0.4 mg PO QHS [facility] Last Admin: 03/15/22 20:28 Dose: 0.4 mg Trazodone HCl (Trazodone Hcl 50 Mg Tablet) 25 mg PO HSP PRN PRN Reason: Insomnia Vitamin B Complex (Vitamin B Complex 1 Capsule) 1 cap PO QAM [facility] Last Admin: 03/15/22 08:02 Dose: 1 cap Vitamin D (Vitamin D3 25 Mcg Tablet) 25 mcg PO BID [facility] Last Admin: 03/15/22 20:39 Dose: 25 mcg A/P Narrative A/P Narrative: Assessment and Plans: *Acute on chronic hypoxic respiratory failure: -Supplemental oxygen wean as able *Bilateral pneumonia: -CEPHEID: RSV positive, COVID/influenza negative -empiric Rocephin / Zithromax *AECOPD (2L O2@night, home): -Solu-Medrol (wean) -nebs, Zithromax *h/o lung cancer and right partial pneumonectomy: Continue to monitor *GERD: Continue Prilosec *HTN: Amlodipine, Losartan, Metoprolol ER, lasix *Hyponatremia: Monitor and follow-up *Generalized weakness/deconditioning: PT/ OT * ppx: Lovenox / home ppi Time Spent With Patient Time: Total time spent is greater than 50% in coordination of care (as documented) at patient's floor/unit and/or counseling patient: QUALITY Stroke Symptom Onset Unknown: No VTE Deep Vein Thrombosis/Pulmonary Embolism Present on Admission: No
[2022-03-16] MEDS ORDERED: LEVALBUTEROL 1.25 MG/3 ML AMPUL.NEB NEB SCH (08:00)
[2022-03-16 08:01] LABS: Basophils # (Auto) 0.01 K/mcL (0.00-0.30); Basophils % (Auto) 0.1 % (0.0-2.0); Eosinophils # (Auto) 0 K/mcL (0.00-0.70); Eosinophils % (Auto) 0 % (0.0-7.0); Hematocrit 35.8 % (40.1-51.0); Hemoglobin 12.3 g/dL (13.7-17.5); Lymphocytes # (Auto) 0.86 K/mcL (1.50-4.80); Lymphocytes % (Auto) 5.3 % (15.5-49.0); Mean Cell Volume 91.6 fL (80.0-100.0); Mean Corpuscular HGB Conc 34.4 g/dL (31.0-36.0); Mean Platelet Volume 9.6 fL (8.8-12.5); Monocytes # (Auto) 0.49 K/mcL (0.10-0.90); Neutrophils % (Auto) 89.7 % (38.0-78.0); Platelet Count 246 K/mcL (140-440); RBC 3.91 M/mcL (4.63-6.08); Red Cell Distribution Width 14.2 % (11.5-14.5); WBC 16.1 K/mcL (4.5-11.0)
[2022-03-16] MEDS: METOPROLOL SUCCINATE 50 MG TAB.XL.24H PO SCH (08:14)
[2022-03-16] MEDS: cefTRIAXone 1 GM VIAL IV SCH (08:14)
[2022-03-16] MEDS: ENOXAPARIN 40 MG/0.4 ML SYRINGE SQ SCH (08:14)
[2022-03-16] MEDS: ASPIRIN 81 MG TAB.CHEW PO SCH (08:14)
[2022-03-16] MEDS: OMEPRAZOLE 20 MG CAPSULE PO SCH (08:14)
[2022-03-16] MEDS: POTASSIUM CHLORIDE 10 MEQ TABLET PO SCH (08:14)
[2022-03-16] MEDS: FUROSEMIDE 20 MG TABLET PO SCH (08:14)
[2022-03-16] MEDS: DOCUSATE SODIUM 100 MG CAPSULE PO SCH (08:15)
[2022-03-16] MEDS: LACTOBACILLUS 1 CAPSULE PO SCH (08:24)
[2022-03-16] MEDS: BENZONATATE 100 MG CAPSULE PO PRN (08:24)
[2022-03-16] MEDS: FLUTICASONE/SALMETEROL 250/50 INHALER #14 INH SCH (09:48)
[2022-03-16] MEDS ORDERED: MAGNESIUM SULFATE 2 GM/50 ML BAG IV ONE (10:04)
[2022-03-16 10:28] LABS: Band Neutrophils % 2 % (0-10); Lymphocytes % 4 % (15-49); Monocytes % (Manual) 3 % (1-12); Platelet Estimate NORMAL (Normal); RBC Morphology NORMAL (Normal); Segmented Neutrophils % 91 % (38-78)
--- NOTE | 2022-03-16 10:37 | Discharge Summary ---
Discharge Provider Provider IMPORTANT FOLLOW-UP INFORMATION FOR PCP: Patient information: Note initiated : 03/16/22 at 10:35 am Service Date, if different from initiated Date: [] Patient: Arben Andrade 86 y/o M admitted on 03/13/22 for Shortness of breath. Chief Complaint: [] Date of admission: 03/13/22 17:21 Discharge date: 03/16/22 Primary care physician: Glenna Harris Consults: 03/13/22 Consult to Physician [CONS] Stat Comment: Consulting Provider: Zeyad Carson Reason For Exam: Physician to Consult COURSE Hospital Course Hospital course: Mr. Andrade is a 86 year old M history of lung cancer s/p partial right pneumonectomy in January 2017, COPD, hypertensions, BPH, GERD, presenting with 1 week history of shortness of breath and cough. He presented to [facility] on March 08, 2022, and was being tested positive for RSV. He is presenting with 1 week history of worsening shortness of breath, and cough with sodium phlegms productions. He denies respiratory wheezings. He denies chest pain or chest pressure. He denies palpitations. He experienced shaking chills a day or 2 ago, denies any fever or diaphoresis. He is complaining of general body weakness. Vital signs at ED presentation significant for tachycardia as well as oxygen desaturating in the high 80s on room air. Labs significant for lack of leukocytosis with WBC 7.0. Lactic acid pending. D dimer 3.20. CT angiogram of the chest negative for pulmonary embolism. It shows bilateral lung base infiltrate suggestive of bilateral pneumonia. Patient's developed atrial fibrillation's after a breathing treatment was delivered in the ED, but he subsequently converted back to normal sinus rhythm. Admission request was called for pneumonia as well as COPD exacerbations. 03/14: Afebrile overnight. Blood culture no growth to date; CEPHEID: RSV positive, COVID/influenza negative. Currently on room air. Had an episode of atrial fibrillation tachycardia heart rate up to the 140s bpm overnight, now converted back to normal sinus rhythm with frequent PVC, serum Mg level 1.7. Patient is complaining of same degree of shortness of breath. He is complaining of mostly nonproductive cough, denies any respiratory wheezing. He is complaining of chest pain when he coughs. Denies any fever, chills, or sweating. Complaining of general body weakness. Stays in med surg telemetry. Supplemental oxygen therapy as needed. Continue Rocephin and Azithromycin. MgSO4 IV replacement. Physical therapy evaluation and treatment. 03/15: Afebrile overnight. Patient is currently on 2 L/min of nasal cannula oxygen. There was no other overnight events. Order cultures been no growth today. Patient is complaining of improving degree of shortness of breath. He is complaining of nonproductive cough. He had left-sided rib pain when he was coughing last night but currently he denies such pain. He denies any respiratory wheezings. He denies any fever chills or diaphoresis. Stays in med surg telemetry. Supplemental oxygen therapy as needed, continue to wean as tolerated. Continue Rocephin and Azithromycin. Physical therapy evaluation and treatment. Assessment and Plans: *Acute on chronic hypoxic respiratory failure: *Bilateral pneumonia: -CEPHEID:RSV positive, COVID/influenza negative *AECOPD (2L O2@night, home): -steroid taper *h/o lung cancer and right partial pneumonectomy: Continue to monitor *GERD: Continue Prilosec *HTN: Amlodipine, Losartan, Metoprolol ER, lasix *Hyponatremia: Monitor and follow-up Discharge diagnosis: Acute on chronic hypoxic respite failure pneumonia RSV infection COPD Secondary discharge diagnosis: History of lung cancer with partial pneumonectomy GERD hypertension hyponatremia Time Spent with Patient Time attestation: Total time spent providing and/or coordinating discharge services: Time spent: Greater than 30 minutes EXAM Constitutional Vitals: Temp Pulse Resp BP Pulse Ox O2 Del Method O2 Flow Rate 97.3 F 83 16 139/89 99 0 03/16/22 07:54 03/16/22 08:57 03/16/22 08:57 03/16/22 07:54 03/16/22 08:57 03/16/22 08:57 03/16/22 00:38 Discharge Data Data Completed and Pending Labs on day of discharge: Labs from last 24 hours 03/16/22 03/16/22 03/16/22 05:20 05:20 05:20 WBC 16.1 H RBC 3.91 L Hgb 12.3 L Hct 35.8 L MCV 91.6 MCH 31.5 MCHC 34.4 RDW 14.2 Plt Count 246 MPV 9.6 Immature Gran % (Auto) 1.9 H Neut % (Auto) 89.7 H Lymph % (Auto) 5.3 L [place] % (Auto) 3.0 Eos % (Auto) 0 Baso % (Auto) 0.1 Lymph # (Auto) 0.86 L [place] # (Auto) 0.49 Eos # (Auto) 0 Baso # (Auto) 0.01 Seg Neutrophils % 91 H Band Neutrophils % 2 Lymphocytes % 4 L Monocytes % (Manual) 3 Immature Gran # 0.31 H Absolute Neutrophils 14.45 H Platelet Estimate Normal RBC Morphology Normal Sodium 131 L Potassium 4.7 Chloride 94 L Carbon Dioxide 29 Anion Gap 8.0 BUN 38 H Creatinine 1.2 GFR Calculation 55 Glucose 146 H Uric Acid 6.4 Calcium 10.7 H Phosphorus 3.8 Magnesium 1.9 Total Bilirubin 0.2 Direct Bilirubin < 0.2 GGT 33 AST 20 ALT 25 Alkaline Phosphatase 85 Lactate Dehydrogenase 142 Total Protein 5.7 L Albumin 3.1 L Globulin 2.6 Albumin/Globulin Ratio 1.2 Triglycerides 77 Preliminary micro results at discharge 03/13/22 18:15 Blood Culture - Preliminary Blood 03/13/22 18:10 Blood Culture - Preliminary Blood Discharge Plan Patient/Caregiver Discharge Instructions Activity: increase activity as tolerated Diet: Regular Diet Instructions: COPD (Chronic Obstructive Pulmonary Disease) (GEN), Pneumonia (GEN) Prescriptions: New levofloxacin 750 mg tablet 750 mg PO Q24H Qty: 2 0RF prednisone 10 mg tablet 40 mg PO QDAY Qty: 1 0RF Rx Instructions: Take 40mg once daily for 2 days then 20mg daily for 2 days then 10mg daily x2 days then 5mg x2 days and stop Continued potassium chloride 10 mEq capsule, extended release See Rx Instructions .ROUTE .COMPLEX Qty: 90 3RF Dose Instruction: TAKE 1 CAPSULE BY MOUTH EVERY DAY Rx Instructions: TAKE 1 CAPSULE BY MOUTH EVERY DAY furosemide 20 mg tablet See Rx Instructions .ROUTE .COMPLEX Qty: 90 3RF Dose Instruction: TAKE 1 TABLET BY MOUTH EVERY MORNING FOR HYPERTENSION Rx Instructions: TAKE 1 TABLET BY MOUTH EVERY MORNING FOR HYPERTENSION albuterol sulfate 90 mcg/actuation HFA aerosol inhaler 2 puff inhalation Q6H PRN (Reason: shortness of breath or wheezing) Qty: 25.5 3RF (DME) Stationary concentrator and nasal cannula tubing See Rx Instructions .Route .MEDSUPPLY Qty: 1 0RF Rx Instructions: Wear 2LPM while sleeping; at night and or naps. lorazepam 0.5 mg tablet 0.5 mg PO Q8H PRN (Reason: anxiety ) Qty: 90 2RF omeprazole 20 mg capsule,delayed release(DR/EC) See Rx Instructions .ROUTE .COMPLEX Qty: 90 2RF Dose Instruction: TAKE 1 CAPSULE BY MOUTH EVERY DAY Rx Instructions: TAKE 1 CAPSULE BY MOUTH EVERY DAY amlodipine 5 mg tablet See Rx Instructions .ROUTE .COMPLEX Qty: 90 4RF Dose Instruction: TAKE 1 TABLET(5 MG) BY MOUTH EVERY NIGHT AT BEDTIME FOR HYPERTENSION Rx Instructions: TAKE 1 TABLET(5 MG) BY MOUTH EVERY NIGHT AT BEDTIME FOR HYPERTENSION aspirin 81 mg tablet,delayed release (DR/EC) 81 mg PO QDAY cholecalciferol (vitamin D3) 1,000 unit capsule 1,000 unit PO BID Lacto.acidophilus-Bif.animalis 1 cap PO QDAY vitamin B complex 1 cap PO QAM naproxen sodium [Aleve] 220 mg tablet 220 mg PO PRN PRN (Reason: Pain) doxycycline monohydrate 100 mg capsule 100 mg PO BID 7 Days Qty: 14 0RF Rx Instructions: Take with food. metoprolol succinate 50 mg tablet extended release 24 hr 50 mg PO QDAY Qty: 90 4RF (DME) inguinal hernia truss See Rx Instructions .Route .MEDSUPPLY Qty: 1 0RF Rx Instructions: As directed gabapentin 100 mg capsule See Rx Instructions .ROUTE .COMPLEX Qty: 360 3RF Dose Instruction: TAKE 1 CAPSULE BY MOUTH AT SUPPER AND 1 CAPSULE BY MOUTH AT BEDTIME Rx Instructions: TAKE 2 CAPSULE BY MOUTH AT SUPPER AND 1 CAPSULE BY MOUTH AT BEDTIME diphenhydramine-acetaminophen [Tylenol PM Extra Strength] 25-500 mg Tablet 2 tab PO QPM acetaminophen [Tylenol 8 Hour] 650 mg tablet extended release 650 mg PO Q8H PRN (Reason: pain) Qty: 90 0RF fluticasone propion-salmeterol [Wixela Inhub] 250-50 mcg/dose blister with device 1 inh inhalation BID Rx Instructions: Inhale 1 dose twice a day rinse and clear mouth after . lorazepam [Ativan] 0.5 mg tablet 0.5 mg PO TID PRN (Reason: Anxiety) Label Comments: [NO ORIGINAL SIG] gabapentin [Neurontin] 100 mg capsule 200 mg PO 1600 Label Comments: [NO ORIGINAL SIG] losartan [Cozaar] 50 mg tablet 50 mg PO HS Rx Instructions: TAKE 1 TABLET BY MOUTH at hs tamsulosin [Flomax] 0.4 mg capsule 0.4 mg PO QHS fluticasone propionate 50 mcg/actuation spray,suspension See Rx Instructions .ROUTE .COMPLEX PRN (Reason: seasonal allergies) Rx Instructions: INSTILL 1 SPRAY INTO EACH NOSTRIL DAILY Follow Up Plan Follow up with: Glenna Harris PA-C [Primary Care Provider] - Patient Disposition: Home, Self-Care Overall status at discharge: patient is progressing back to baseline Discharge Orders: Discharge Order (Routine); Ordered 03/16/22 Ordered By: Brando Campos [facility] VTE Deep Vein Thrombosis/Pulmonary Embolism Present on Admission: No
== END 2022-03-16 15:30 | disposition home or self-care (01) | DRG 193 ==
LOC: ED 10:51 → ICU 17:21
PROVIDERS: ADMIT Internal Medicine; ATTEND Internal Medicine